=== PATIENT | female | born 1945 | race Caucasian/White ===

== ENCOUNTER 2022-02-04 21:07 | Inpatient (IN) ==
[2022-02-04] MEDS ORDERED: DILAUDID INJ ONE (22:34)
[2022-02-04] MEDS ORDERED: ZOFRAN INJ 4 MG VIAL IVP ONE (22:40)
[2022-02-04] MEDS ORDERED: DILAUDID INJ IVP ONE (22:40)
[2022-02-04] MEDS ORDERED: ZOFRAN INJ 4 MG VIAL ONE (22:42)
[2022-02-04] MEDS ORDERED: PHENERGAN INJ 25 MG IM PRN (23:16)
[2022-02-04] MEDS ORDERED: ZOFRAN INJ 4 MG VIAL IVP PRN (23:16)
[2022-02-04] MEDS ORDERED: ZANAFLEX PO PRN (23:28)
[2022-02-05] MEDS: BETAPACE AF PO SCH ×3 (00:35→20:24)
[2022-02-05] MEDS: ANCEF VIAL 1 GRAM IVP SCH ×2 (00:35→05:34)
[2022-02-05] MEDS ORDERED: D5 1/2 NS 1,000 ML 1,000 ML IV ONE (01:55)
[2022-02-05 02:27] LABS: BILIRUBIN,URINE NEGATIVE (NEGATIVE); BLOOD/HEMOGLOBIN,URINE 1+ (NEGATIVE); GLUCOSE, URINE NEGATIVE (NEGATIVE); KETONES,URINE NEGATIVE (NEGATIVE); LEUKOCYTE ESTERASE ,URINE 3+ (NEGATIVE); NITRITES,URINE NEGATIVE (NEGATIVE); PROTEIN,URINE 2+ (NEGATIVE); UROBILINOGEN,URINE NORMAL (NORMAL)
[2022-02-05] MEDS: DILAUDID INJ IVP PRN ×4 (02:46→16:50)
[2022-02-05 02:48] LABS: APPEARANCE,URINE CLEAR (CLEAR); COLOR,URINE YELLOW (YELLOW)
[2022-02-05 02:49] LABS: BACTERIA,URINE NEGATIVE /HPF (NEGATIVE); CALCIUM OXALATE CRYSTALS,UR MODERATE /HPF (NEGATIVE); SQUAMOUS EPITHELIAL CELL,UR RARE /HPF (NEGATIVE)
[2022-02-05 05:30] LABS: BASOPHILS % (AUTO) 0.4 % (0.2-1.0); HEMATOCRIT 21.8 % (36.0-47.0); HEMOGLOBIN 7.5 g/dL (12.0-16.0); LYMPHOCYTES # (AUTO) 1.2 X10^3/uL (1.3-2.9); LYMPHOCYTES % (AUTO) 10.4 % (21.0-51.0); MEAN CORPUSCULAR HEMOGLOBIN 30.7 pg (27.0-34.0); MEAN CORPUSCULAR HGB CONC 34.4 g/dL (33.0-35.0); MEAN CORPUSCULAR VOLUME 89.2 fL (80.0-100.0); MEAN PLATELET VOLUME 7.8 fL (7.4-11.0); MONOCYTES % (AUTO) 8.3 % (0.0-13.0); NEUTROPHILS # (AUTO) 9.8 x10^3/uL (2.2-4.8); NEUTROPHILS % (AUTO) 80.9 % (42.0-75.0); RED BLOOD COUNT 2.44 X10^6/uL (3.5-5.4); RED CELL DISTRIBUTION WIDTH 13.9 % (11.6-16.5)
[2022-02-05 06:01] LABS: ALBUMIN 2.5 g/dL (3.4-5.0); CALCIUM 6.9 mg/dL (8.5-10.1); CARBON DIOXIDE 22.3 mmol/L (21-32); COR CA(FOR HYPOALB) 8.1 mg/dL (8.5-10.1); CREATININE 1.64 mg/dL (0.55-1.02); TOTAL PROTEIN 4.7 g/dL (6.4-8.2)
--- NOTE | 2022-02-05 06:34 | RAD ---
HISTORY:Cardiovascular clearance for surgeryStudy: Single view chestComparison:NoneFindings:Upright portable view demonstrates mild cardiomegaly. No infiltrate, effusion or pneumothorax. There is a lap band place with port in left chest.IMPRESSION:1.No acute cardiopulmonary abnormality.Electronically signed by: VICK ADAN (Feb 05, 2022 06:32:36)
--- NOTE | 2022-02-05 08:58 | DR.PROGNOT ---
Hospital Progress Notes - Progress Note for Day of: Progress Note Date: 02/05/22 - Chief Complaint Chief Complaint: feeling better this am ..no active bleeding now . dressing was changed .. has stable hematomawith long 15 cm open wound . Hgb 7.5 . afebrile . - Past Medical Family Social History Past Med/Fam/Surg Hx: No changes since H&P Allergies: Allergies mupirocin [From Bactroban] Adverse Reaction (Verified 02/04/22 22:58) - Review Of Systems ROS: No change since H&P - Vital Signs Vital Signs: Temperature 97.5 F Pulse Rate [Radial] 52 Respiratory Rate 18 Blood Pressure [Right Arm] 93/54 O2 Sat by Pulse Oximetry 100 - Physical Exam Oriented: Normal Eyes: Normal Nose: Normal Throat: Normal Respiratory: Normal Cardiovascular: Normal : Normal GI:Auscultation: Normal GI:Palpation: Normal GI: Tenderness: Normal Skin: Ecchymosis. negative: Other (large deep hematoma within the soft tissue with open 15 cm wound .lateral Lt calf .) Speech Pattern: Clear, Appropriate - Laboratory and Diagnostics Result Diagrams: 02/05/22 05:20 02/05/22 05:20 Labs: Laboratory WBC 12.0 X10^3/uL (3.6-10.0) H 02/05/22 05:20 RBC 2.44 X10^6/uL (3.5-5.4) L 02/05/22 05:20 Hgb 7.5 g/dL (12.0-16.0) L 02/05/22 05:20 Hct 21.8 % (36.0-47.0) L 02/05/22 05:20 MCV 89.2 fL (80.0-100.0) 02/05/22 05:20 MCH 30.7 pg (27.0-34.0) 02/05/22 05:20 MCHC 34.4 g/dL (33.0-35.0) 02/05/22 05:20 RDW 13.9 % (11.6-16.5) 02/05/22 05:20 Plt Count 239 X10^3/uL (150.0-450.0) 02/05/22 05:20 MPV 7.8 fL (7.4-11.0) 02/05/22 05:20 Neut % (Auto) 80.9 % (42.0-75.0) H 02/05/22 05:20 Lymph % (Auto) 10.4 % (21.0-51.0) L 02/05/22 05:20 [place] % (Auto) 8.3 % (0.0-13.0) 02/05/22 05:20 Eos % (Auto) 0.0 % (0.9-2.9) L 02/05/22 05:20 Baso % (Auto) 0.4 % (0.2-1.0) 02/05/22 05:20 Neut # (Auto) 9.8 x10^3/uL (2.2-4.8) H 02/05/22 05:20 Lymph # (Auto) 1.2 X10^3/uL (1.3-2.9) L 02/05/22 05:20 [place] # (Auto) 1.0 x10^3/uL (0.3-0.8) H 02/05/22 05:20 Eos # (Auto) 0.0 x10^3/uL (0.0-0.2) 02/05/22 05:20 Baso # (Auto) 0.0 X10^3/uL (0.0-0.1) 02/05/22 05:20 Absolute Nucleated RBC 0.0 /100WBC 02/05/22 05:20 Sodium 141 mmol/L (136-145) 02/05/22 05:20 Corrected Sodium 143 mmol/L (136-145) 02/05/22 05:20 Potassium 4.4 mmol/L (3.5-5.1) 02/05/22 05:20 Chloride 110 mmol/L (98-107) H 02/05/22 05:20 Carbon Dioxide 22.3 mmol/L (21-32) 02/05/22 05:20 BUN 25 mg/dL (7-18) H 02/05/22 05:20 Creatinine 1.64 mg/dL (0.55-1.02) H 02/05/22 05:20 Est GFR (MDRD) Af Amer 39 (>60) L 02/05/22 05:20 Est GFR (MDRD) Non-Af 32 (>60) L 02/05/22 05:20 Glucose 167 mg/dL (65-99) H 02/05/22 05:20 Calcium 6.9 mg/dL (8.5-10.1) L 02/05/22 05:20 Corrected Calcium 8.1 mg/dL (8.5-10.1) L 02/05/22 05:20 Total Bilirubin 0.40 mg/dL (0.2-1.0) 02/05/22 05:20 AST 12 Units/L (15-37) L 02/05/22 05:20 ALT 8 Units/L (12-78) L 02/05/22 05:20 Alkaline Phosphatase 40 Units/L (46-116) L 02/05/22 05:20 Total Protein 4.7 g/dL (6.4-8.2) L 02/05/22 05:20 Albumin 2.5 g/dL (3.4-5.0) L 02/05/22 05:20 Globulin 2.2 g/dL (2.5-4.5) L 02/05/22 05:20 Albumin/Globulin Ratio 1.1 Ratio (1.1-2.1) 02/05/22 05:20 Specimen Type Catherized urine 02/05/22 02:00 Urine Color Yellow (YELLOW) 02/05/22 02:00 Urine Appearance Clear (CLEAR) 02/05/22 02:00 Urine pH 5.0 (5.0 - 8.0) 02/05/22 02:00 Ur Specific [place] 1.020 (1.000-1.030) 02/05/22 02:00 Urine Protein 2+ (NEGATIVE) 02/05/22 02:00 Urine Glucose (UA) Negative (NEGATIVE) 02/05/22 02:00 Urine Ketones Negative (NEGATIVE) 02/05/22 02:00 Urine Blood 1+ (NEGATIVE) 02/05/22 02:00 Urine Nitrite Negative (NEGATIVE) 02/05/22 02:00 Urine Bilirubin Negative (NEGATIVE) 02/05/22 02:00 Urine Urobilinogen Normal (NORMAL) 02/05/22 02:00 Ur Leukocyte Esterase 3+ (NEGATIVE) 02/05/22 02:00 Urine RBC 3-5 /HPF (0-3) A 02/05/22 02:00 Urine WBC 10-20 /HPF (0-5) A 02/05/22 02:00 Ur Squamous Epith Cells Rare /HPF (NEGATIVE) 02/05/22 02:00 Calcium Oxalate Crystal Moderate /HPF (NEGATIVE) 02/05/22 02:00 Urine Bacteria Negative /HPF (NEGATIVE) 02/05/22 02:00 Ur Culture Indicated? Yes/culture set up 02/05/22 02:00 SARS CoV-2 RNA Rapid KIM Negative (NEGATIVE) 02/04/22 22:15 Blood Type O POSITIVE 02/05/22 06:30 Antibody Screen Negative 02/05/22 06:30 Crossmatch See Detail 02/05/22 06:30 - Assessment and Plan 2: large deep hematoma Lt leg with open wound 15 cm. 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 A Fif , s/p cardiac ablation . arthritis . chronic lymphedema Lt leg s/p node dissection yearsago .. same local pressure , transfusion as needed , leg elevation .. no surgery now ..
[2022-02-05] MEDS ORDERED: NS 100 ML IV 100 ML ONE (11:44)
[2022-02-05] MEDS: BUSPAR PO SCH ×3 (14:37→20:25)
[2022-02-05] MEDS: NORCO 7.5/325 MG TAB PO PRN ×2 (14:53→20:27)
[2022-02-05] MEDS: K-DUR TAB 20 MEQ PO SCH (14:54)
[2022-02-05] MEDS: CYMBALTA PO SCH (14:54)
[2022-02-05] MEDS: ROCALTROL PO SCH (14:55)
[2022-02-05] MEDS: ZOSYN VIAL 3.375 GRAMS 3.375 G in NS 100 ML IV 100 ML IV SCH ×3 (14:55→21:17)
[2022-02-05] MEDS ORDERED: LR 1,000 ML IV 1,000 ML IV ONE ×2 (17:05→17:40)
[2022-02-05] MEDS: LR 1,000 ML IV 1,000 ML IV SCH ×3 (17:53→20:26)
[2022-02-05 18:00] LABS: HEMATOCRIT 25.8 % (36.0-47.0); HEMOGLOBIN 8.9 g/dL (12.0-16.0)
[2022-02-05] MEDS: BENADRYL CAP/TAB 25 MG PO PRN (20:24)
[2022-02-05] MEDS: XANAX PO PRN (20:25)
[2022-02-05] MEDS ORDERED: PROCARDIA XL 24-hr PO SCH (21:00)
[2022-02-06] MEDS ORDERED: NS 100 ML IV 100 ML ONE (00:57)
[2022-02-06] MEDS: LR 1,000 ML IV 1,000 ML IV SCH ×5 (02:24→18:03)
[2022-02-06] MEDS: ZOSYN VIAL 3.375 GRAMS 3.375 G in NS 100 ML IV 100 ML IV SCH ×3 (05:28→21:00)
[2022-02-06 07:37] LABS: BASOPHILS % (AUTO) 0.3 % (0.2-1.0); EOSINOPHILS % (AUTO) 0.4 % (0.9-2.9); HEMATOCRIT 25.6 % (36.0-47.0); HEMOGLOBIN 9.1 g/dL (12.0-16.0); LYMPHOCYTES % (AUTO) 10.2 % (21.0-51.0); MEAN CORPUSCULAR HEMOGLOBIN 31.3 pg (27.0-34.0); MEAN CORPUSCULAR HGB CONC 35.5 g/dL (33.0-35.0); MEAN CORPUSCULAR VOLUME 88.1 fL (80.0-100.0); MEAN PLATELET VOLUME 7.6 fL (7.4-11.0); MONOCYTES # (AUTO) 1.2 x10^3/uL (0.3-0.8); NEUTROPHILS # (AUTO) 7.5 x10^3/uL (2.2-4.8); NEUTROPHILS % (AUTO) 77.1 % (42.0-75.0); RED CELL DISTRIBUTION WIDTH 14.1 % (11.6-16.5); WHITE BLOOD COUNT 9.8 X10^3/uL (3.6-10.0)
[2022-02-06 07:43] LABS: ALANINE AMINOTRANSFERASE 9 Units/L (12-78); ALBUMIN 2.5 g/dL (3.4-5.0); ALKALINE PHOSPHATASE 44 Units/L (46-116); ASPARTATE AMINO TRANSFERASE 16 Units/L (15-37); BLOOD UREA NITROGEN 25 mg/dL (7-18); CALCIUM 6.7 mg/dL (8.5-10.1); CARBON DIOXIDE 24.2 mmol/L (21-32); CHLORIDE 105 mmol/L (98-107); COR CA(FOR HYPOALB) 7.9 mg/dL (8.5-10.1); CREATININE 1.77 mg/dL (0.55-1.02); SODIUM 136 mmol/L (136-145); TOTAL PROTEIN 4.9 g/dL (6.4-8.2); eGFR NON BLACK RACES 30 (>60)
[2022-02-06] MEDS: K-DUR TAB 20 MEQ PO SCH (08:13)
[2022-02-06] MEDS: CYMBALTA PO SCH (08:13)
[2022-02-06] MEDS: ROCALTROL PO SCH (08:13)
[2022-02-06] MEDS: BUSPAR PO SCH ×2 (08:14→20:50)
[2022-02-06] MEDS: BETAPACE AF PO SCH ×2 (08:14→20:49)
[2022-02-06] MEDS: NORCO 7.5/325 MG TAB PO PRN ×3 (08:15→20:50)
[2022-02-06] MEDS ORDERED: STERILE WATER IRRIGATION IR ONE (11:28)
[2022-02-06 12:18] LABS: BILIRUBIN,URINE NEGATIVE (NEGATIVE); BLOOD/HEMOGLOBIN,URINE 4+ (NEGATIVE); GLUCOSE, URINE NEGATIVE (NEGATIVE); KETONES,URINE NEGATIVE (NEGATIVE); LEUKOCYTE ESTERASE ,URINE NEGATIVE (NEGATIVE); NITRITES,URINE NEGATIVE (NEGATIVE); PROTEIN,URINE 1+ (NEGATIVE); UROBILINOGEN,URINE NORMAL (NORMAL)
[2022-02-06 12:34] LABS: APPEARANCE,URINE CLEAR (CLEAR); COLOR,URINE PALE YELLOW (YELLOW)
[2022-02-06 12:35] LABS: BACTERIA,URINE TRACE /HPF (NEGATIVE); SQUAMOUS EPITHELIAL CELL,UR NEGATIVE /HPF (NEGATIVE); YEAST,URINE RARE /HPF (NEGATIVE)
--- NOTE | 2022-02-06 12:44 | DR.PROGNOT ---
Hospital Progress Notes - Progress Note for Day of: Progress Note Date: 02/06/22 - Chief Complaint Chief Complaint: .no active bleeding now . had low urine out put ( osman cath was re inserted with good out put > 1000cc ). dressing was changed .. has stable hematomawith 15 cm open wound . Hgb 9.1 . afebrile . - Past Medical Family Social History Past Med/Fam/Surg Hx: No changes since H&P Allergies: Allergies mupirocin [From Bactroban] Adverse Reaction (Verified 02/04/22 22:58) - Review Of Systems ROS: No change since H&P - Vital Signs Vital Signs: Temperature 98.4 F Pulse Rate [Radial] 60 Respiratory Rate 20 Blood Pressure [Right Arm] 88/42 O2 Sat by Pulse Oximetry 100 - Physical Exam Oriented: Normal Eyes: Normal Nose: Normal Throat: Normal Respiratory: Normal Cardiovascular: Normal : Normal GI:Auscultation: Normal GI:Palpation: Normal GI: Tenderness: Normal Skin: Ecchymosis. negative: Other (large deep hematoma within the soft tissue with open 15 cm wound .lateral Lt calf .) Speech Pattern: Clear, Appropriate - Laboratory and Diagnostics Result Diagrams: 02/06/22 07:15 02/06/22 07:15 Labs: 02/05/22 02:00 Urine,Catheterized Urine Culture - Preliminary Laboratory WBC 9.8 X10^3/uL (3.6-10.0) 02/06/22 07:15 RBC 2.90 X10^6/uL (3.5-5.4) L 02/06/22 07:15 Hgb 9.1 g/dL (12.0-16.0) L 02/06/22 07:15 Hct 25.6 % (36.0-47.0) L 02/06/22 07:15 MCV 88.1 fL (80.0-100.0) 02/06/22 07:15 MCH 31.3 pg (27.0-34.0) 02/06/22 07:15 MCHC 35.5 g/dL (33.0-35.0) H 02/06/22 07:15 RDW 14.1 % (11.6-16.5) 02/06/22 07:15 Plt Count 169 X10^3/uL (150.0-450.0) 02/06/22 07:15 MPV 7.6 fL (7.4-11.0) 02/06/22 07:15 Neut % (Auto) 77.1 % (42.0-75.0) H 02/06/22 07:15 Lymph % (Auto) 10.2 % (21.0-51.0) L 02/06/22 07:15 [place] % (Auto) 12.0 % (0.0-13.0) 02/06/22 07:15 Eos % (Auto) 0.4 % (0.9-2.9) L 02/06/22 07:15 Baso % (Auto) 0.3 % (0.2-1.0) 02/06/22 07:15 Neut # (Auto) 7.5 x10^3/uL (2.2-4.8) H 02/06/22 07:15 Lymph # (Auto) 1.0 X10^3/uL (1.3-2.9) L 02/06/22 07:15 [place] # (Auto) 1.2 x10^3/uL (0.3-0.8) H 02/06/22 07:15 Eos # (Auto) 0.0 x10^3/uL (0.0-0.2) 02/06/22 07:15 Baso # (Auto) 0.0 X10^3/uL (0.0-0.1) 02/06/22 07:15 Absolute Nucleated RBC 0.0 /100WBC 02/06/22 07:15 Sodium 136 mmol/L (136-145) 02/06/22 07:15 Corrected Sodium TNP 02/06/22 07:15 Potassium 4.1 mmol/L (3.5-5.1) 02/06/22 07:15 Chloride 105 mmol/L (98-107) 02/06/22 07:15 Carbon Dioxide 24.2 mmol/L (21-32) 02/06/22 07:15 BUN 25 mg/dL (7-18) H 02/06/22 07:15 Creatinine 1.77 mg/dL (0.55-1.02) H 02/06/22 07:15 Est GFR (MDRD) Af Amer 36 (>60) L 02/06/22 07:15 Est GFR (MDRD) Non-Af 30 (>60) L 02/06/22 07:15 Glucose 100 mg/dL (65-99) H 02/06/22 07:15 Calcium 6.7 mg/dL (8.5-10.1) L 02/06/22 07:15 Corrected Calcium 7.9 mg/dL (8.5-10.1) L 02/06/22 07:15 Total Bilirubin 0.90 mg/dL (0.2-1.0) 02/06/22 07:15 AST 16 Units/L (15-37) 02/06/22 07:15 ALT 9 Units/L (12-78) L 02/06/22 07:15 Alkaline Phosphatase 44 Units/L (46-116) L 02/06/22 07:15 Total Protein 4.9 g/dL (6.4-8.2) L 02/06/22 07:15 Albumin 2.5 g/dL (3.4-5.0) L 02/06/22 07:15 Globulin 2.4 g/dL (2.5-4.5) L 02/06/22 07:15 Albumin/Globulin Ratio 1.0 Ratio (1.1-2.1) L 02/06/22 07:15 Specimen Type Catherized urine 02/06/22 11:50 Urine Color Pale yellow (YELLOW) 02/06/22 11:50 Urine Appearance Clear (CLEAR) 02/06/22 11:50 Urine pH 6.0 (5.0 - 8.0) 02/06/22 11:50 Ur Specific [place] 1.015 (1.000-1.030) 02/06/22 11:50 Urine Protein 1+ (NEGATIVE) 02/06/22 11:50 Urine Glucose (UA) Negative (NEGATIVE) 02/06/22 11:50 Urine Ketones Negative (NEGATIVE) 02/06/22 11:50 Urine Blood 4+ (NEGATIVE) 02/06/22 11:50 Urine Nitrite Negative (NEGATIVE) 02/06/22 11:50 Urine Bilirubin Negative (NEGATIVE) 02/06/22 11:50 Urine Urobilinogen Normal (NORMAL) 02/06/22 11:50 Ur Leukocyte Esterase Negative (NEGATIVE) 02/06/22 11:50 Urine RBC 3-5 /HPF (0-3) A 02/06/22 11:50 Urine WBC 0-2 /HPF (0-5) 02/06/22 11:50 Ur Squamous Epith Cells Negative /HPF (NEGATIVE) 02/06/22 11:50 Calcium Oxalate Crystal Moderate /HPF (NEGATIVE) 02/05/22 02:00 Urine Bacteria Trace /HPF (NEGATIVE) 02/06/22 11:50 Urine Yeast Rare /HPF (NEGATIVE) 02/06/22 11:50 Ur Culture Indicated? No/not indicated 02/06/22 11:50 SARS CoV-2 RNA Rapid KIM Negative (NEGATIVE) 02/04/22 22:15 Blood Type O POSITIVE 02/05/22 06:30 Antibody Screen Negative 02/05/22 06:30 Crossmatch See Detail 02/05/22 06:30 - Assessment and Plan 2: large deep hematoma Lt leg with open wound 15 cm. 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 A Fif , s/p cardiac ablation . arthritis . chronic lymphedema Lt leg s/p node dissection yearsago .. same local pressure , transfusion as needed , leg elevation .. to clean the wound in the OR in am if the Pt is staying in the hospital
[2022-02-06] MEDS: COZAAR PO SCH (14:29)
[2022-02-06] MEDS: MIRALAX POWDER (1 DOSE 17 G) PO SCH (20:48)
[2022-02-06] MEDS: XANAX PO PRN (20:48)
[2022-02-06] MEDS: COLACE CAP 100 MG PO SCH (20:49)
[2022-02-07] MEDS: LR 1,000 ML IV 1,000 ML IV SCH ×6 (00:01→22:24)
[2022-02-07] MEDS: ZOSYN VIAL 3.375 GRAMS 3.375 G in NS 100 ML IV 100 ML IV SCH ×3 (05:15→22:23)
[2022-02-07 06:08] LABS: BLOOD UREA NITROGEN 14 mg/dL (7-18); CALCIUM 7.3 mg/dL (8.5-10.1); CHLORIDE 108 mmol/L (98-107); CREATININE 1.07 mg/dL (0.55-1.02); SODIUM 140 mmol/L (136-145); eGFR NON BLACK RACES 53 (>60)
[2022-02-07 06:18] LABS: BASOPHILS % (AUTO) 0.2 % (0.2-1.0); EOSINOPHILS # (AUTO) 0.1 x10^3/uL (0.0-0.2); EOSINOPHILS % (AUTO) 1.2 % (0.9-2.9); LYMPHOCYTES # (AUTO) 0.9 X10^3/uL (1.3-2.9); LYMPHOCYTES % (AUTO) 13.8 % (21.0-51.0); MEAN CORPUSCULAR HEMOGLOBIN 32.1 pg (27.0-34.0); MEAN CORPUSCULAR HGB CONC 36.4 g/dL (33.0-35.0); MEAN CORPUSCULAR VOLUME 88.2 fL (80.0-100.0); MEAN PLATELET VOLUME 7.9 fL (7.4-11.0); MONOCYTES # (AUTO) 0.9 x10^3/uL (0.3-0.8); MONOCYTES % (AUTO) 13.9 % (0.0-13.0); NEUTROPHILS # (AUTO) 4.5 x10^3/uL (2.2-4.8); NEUTROPHILS % (AUTO) 70.9 % (42.0-75.0); RED BLOOD COUNT 2.49 X10^6/uL (3.5-5.4); RED CELL DISTRIBUTION WIDTH 13.9 % (11.6-16.5); WHITE BLOOD COUNT 6.4 X10^3/uL (3.6-10.0)
[2022-02-07] MEDS: CYMBALTA PO SCH (08:41)
[2022-02-07] MEDS: K-DUR TAB 20 MEQ PO SCH (08:41)
[2022-02-07] MEDS: ROCALTROL PO SCH (08:41)
[2022-02-07] MEDS: BUSPAR PO SCH ×2 (08:41→20:49)
[2022-02-07] MEDS: BETAPACE AF PO SCH ×2 (08:51→20:48)
[2022-02-07] MEDS: COZAAR PO SCH (08:52)
[2022-02-07] MEDS: PROCARDIA XL 24-hr PO SCH ×2 (09:25→20:49)
[2022-02-07 09:36] LABS: ALANINE AMINOTRANSFERASE 10 Units/L (12-78); ALBUMIN 2.4 g/dL (3.4-5.0); ALKALINE PHOSPHATASE 42 Units/L (46-116); ASPARTATE AMINO TRANSFERASE 15 Units/L (15-37); COR CA(FOR HYPOALB) 8.6 mg/dL (8.5-10.1); TOTAL PROTEIN 4.8 g/dL (6.4-8.2)
[2022-02-07] MEDS ORDERED: LR 1,000 ML IV 1,000 ML IV ONE (10:55)
[2022-02-07] MEDS ORDERED: FENTANYL VIAL INJ 100 mcg ONE (10:59)
[2022-02-07] MEDS ORDERED: VERSED ONE (10:59)
[2022-02-07] MEDS ORDERED: BETADINE SOLN ONE (11:01)
[2022-02-07] MEDS ORDERED: ANCEF VIAL 1 GRAM ONE (11:06)
[2022-02-07] MEDS ORDERED: POLYMYXIN B SULFATE ONE (11:34)
--- NOTE | 2022-02-07 12:13 | DR.UPDATE ---
H&P Update History and Physical Update: History and Physical reviewed and patient examined. Changes noted: NO Yes with the following:will place picc per Dr Ashraf order H&P Reviewed: Yes Patient was examined?: Yes Procedures (ALL) - Central Line Placement PCM.CLCO: written consent Time out performed: Yes Patient placed pm monitor/pulse ox: Yes prep: mask, gown, gloves, other Centrial line prep: povidone-iodine 1%, sterile drapes applied Local anesthsia used: lidocane 1% (1cc) Ultrasound used for placement: Yes (L basilic id'd via u/s and cannulation visualized) Central line lumen ininserted: double Post procedure: good blood return, all ports aspirated, flushed,capped, sterile dressing applied Post procedure xray: tip oc catheter in good position (appears to be SVC per cxr), no pneumothorax seen Patient tolerated procedure: Yes Complications: none
[2022-02-07] MEDS: DILAUDID INJ IVP PRN (12:32)
--- NOTE | 2022-02-07 13:35 | RAD ---
HISTORYPICC LINE PLACEMENTSTUDYCHEST, 1 [id number]/[id number] cardiomediastinal silhouette is prominent but stable. Left PICC placement with tip overlying the SVC. No acute airspace disease. No pneumothorax or effusion. The bony thorax appears intact. Similar lap band port overlying the left chest. Likely slipped lap band.IMPRESSIONExpected positioning of left PICC with tip overlying the SVC.Electronically signed by: ROBERT SHERMAN (Feb 07, 2022 13:33:09)
[2022-02-07] MEDS: NORCO 7.5/325 MG TAB PO PRN ×2 (14:45→20:49)
[2022-02-07] MEDS: MORPHINE SULFATE INJ 4 MG IVP PRN ×2 (17:39→22:24)
[2022-02-07] MEDS: XANAX PO PRN (20:48)
[2022-02-07] MEDS: COLACE CAP 100 MG PO SCH (20:48)
[2022-02-07] MEDS: MIRALAX POWDER (1 DOSE 17 G) PO SCH (20:50)
[2022-02-08] MEDS: ZOSYN VIAL 3.375 GRAMS 3.375 G in NS 100 ML IV 100 ML IV SCH ×3 (05:15→22:49)
[2022-02-08] MEDS: MORPHINE SULFATE INJ 4 MG IVP PRN ×3 (05:15→20:38)
[2022-02-08] MEDS: LR 1,000 ML IV 1,000 ML IV SCH ×3 (05:15→18:24)
[2022-02-08 06:05] LABS: ALANINE AMINOTRANSFERASE 7 Units/L (12-78); ALBUMIN 2.4 g/dL (3.4-5.0); ALKALINE PHOSPHATASE 48 Units/L (46-116); ASPARTATE AMINO TRANSFERASE 10 Units/L (15-37); BLOOD UREA NITROGEN 9 mg/dL (7-18); CALCIUM 7.4 mg/dL (8.5-10.1); CARBON DIOXIDE 27.4 mmol/L (21-32); CHLORIDE 106 mmol/L (98-107); COR CA(FOR HYPOALB) 8.7 mg/dL (8.5-10.1); COR NA(FOR HYPERGLY) 138 mmol/L (136-145); CREATININE 0.75 mg/dL (0.55-1.02); SODIUM 138 mmol/L (136-145); eGFR NON BLACK RACES > 60 (>60)
[2022-02-08 06:15] LABS: BASOPHILS % (AUTO) 0.3 % (0.2-1.0); EOSINOPHILS # (AUTO) 0.1 x10^3/uL (0.0-0.2); EOSINOPHILS % (AUTO) 1.2 % (0.9-2.9); HEMATOCRIT 22.6 % (36.0-47.0); HEMOGLOBIN 8.1 g/dL (12.0-16.0); LYMPHOCYTES # (AUTO) 0.9 X10^3/uL (1.3-2.9); LYMPHOCYTES % (AUTO) 9.9 % (21.0-51.0); MEAN CORPUSCULAR HEMOGLOBIN 31.6 pg (27.0-34.0); MEAN CORPUSCULAR HGB CONC 35.7 g/dL (33.0-35.0); MEAN CORPUSCULAR VOLUME 88.4 fL (80.0-100.0); MEAN PLATELET VOLUME 7.7 fL (7.4-11.0); MONOCYTES # (AUTO) 1.5 x10^3/uL (0.3-0.8); MONOCYTES % (AUTO) 16.5 % (0.0-13.0); NEUTROPHILS # (AUTO) 6.6 x10^3/uL (2.2-4.8); NEUTROPHILS % (AUTO) 72.1 % (42.0-75.0); RED BLOOD COUNT 2.55 X10^6/uL (3.5-5.4); RED CELL DISTRIBUTION WIDTH 14.1 % (11.6-16.5); WHITE BLOOD COUNT 9.2 X10^3/uL (3.6-10.0)
[2022-02-08] MEDS ORDERED: STERILE WATER IRRIGATION IR ONE (08:34)
[2022-02-08] MEDS ORDERED: TORADOL 30 MG VIAL ONE (08:40)
[2022-02-08] MEDS ORDERED: TORADOL 30 MG VIAL IVP ONE (08:41)
--- NOTE | 2022-02-08 09:26 | DR.PROGNOT ---
Hospital Progress Notes - Progress Note for Day of: Progress Note Date: 02/08/22 - Chief Complaint Chief Complaint: c/p pain at hematoma site .. no active bleeding .. stable VS . dressing was changed and all packing was removed .. Xeroform was applied .. - Past Medical Family Social History Past Med/Fam/Surg Hx: No changes since H&P Allergies: Allergies mupirocin [From Bactroban] Adverse Reaction (Verified 02/04/22 22:58) - Review Of Systems ROS: No change since H&P - Vital Signs Vital Signs: Temperature 98.3 F Pulse Rate [Radial] 67 Pulse Rate 59 Respiratory Rate 18 Blood Pressure [Right Arm] 138/63 Blood Pressure 162/84 O2 Sat by Pulse Oximetry 94 - Physical Exam Oriented: Normal Eyes: Normal Nose: Normal Throat: Normal Respiratory: Normal Cardiovascular: Normal : Normal GI:Auscultation: Normal GI:Palpation: Normal GI: Tenderness: Normal Skin: Ecchymosis. negative: Other (large deep hematoma within the soft tissue with open 15 cm wound .lateral Lt calf .) Speech Pattern: Clear, Appropriate - Laboratory and Diagnostics Result Diagrams: 02/08/22 05:22 02/08/22 05:22 Labs: 02/07/22 11:33 Leg - Left Wound Gram Stain - Final 02/05/22 02:00 Urine,Catheterized Urine Culture - Final Laboratory WBC 9.2 X10^3/uL (3.6-10.0) 02/08/22 05:22 RBC 2.55 X10^6/uL (3.5-5.4) L 02/08/22 05:22 Hgb 8.1 g/dL (12.0-16.0) L 02/08/22 05:22 Hct 22.6 % (36.0-47.0) L 02/08/22 05:22 MCV 88.4 fL (80.0-100.0) 02/08/22 05:22 MCH 31.6 pg (27.0-34.0) 02/08/22 05: MCHC 35.7 g/dL (33.0-35.0) H 02/08/22 05:22 RDW 14.1 % (11.6-16.5) 02/08/22 05:22 Plt Count 193 X10^3/uL (150.0-450.0) 02/08/22 05:22 MPV 7.7 fL (7.4-11.0) 02/08/22 05:22 Neut % (Auto) 72.1 % (42.0-75.0) 02/08/22 05:22 Lymph % (Auto) 9.9 % (21.0-51.0) L 02/08/22 05:22 [place] % (Auto) 16.5 % (0.0-13.0) H 02/08/22 05:22 Eos % (Auto) 1.2 % (0.9-2.9) 02/08/22 05:22 Baso % (Auto) 0.3 % (0.2-1.0) 02/08/22 05:22 Neut # (Auto) 6.6 x10^3/uL (2.2-4.8) H 02/08/22 05:22 Lymph # (Auto) 0.9 X10^3/uL (1.3-2.9) L 02/08/22 05:22 [place] # (Auto) 1.5 x10^3/uL (0.3-0.8) H 02/08/22 05:22 Eos # (Auto) 0.1 x10^3/uL (0.0-0.2) 02/08/22 05:22 Baso # (Auto) 0.0 X10^3/uL (0.0-0.1) 02/08/22 05:22 Absolute Nucleated RBC 0.0 /100WBC 02/08/22 05:22 Sodium 138 mmol/L (136-145) 02/08/22 05:22 Corrected Sodium 138 mmol/L (136-145) 02/08/22 05:22 Potassium 4.0 mmol/L (3.5-5.1) 02/08/22 05:22 Chloride 106 mmol/L (98-107) 02/08/22 05:22 Carbon Dioxide 27.4 mmol/L (21-32) 02/08/22 05:22 BUN 9 mg/dL (7-18) 02/08/22 05:22 Creatinine 0.75 mg/dL (0.55-1.02) 02/08/22 05:22 Est GFR (MDRD) Af Amer > 60 (>60) 02/08/22 05:22 Est GFR (MDRD) Non-Af > 60 (>60) 02/08/22 05:22 Glucose 118 mg/dL (65-99) H 02/08/22 05:22 Calcium 7.4 mg/dL (8.5-10.1) L 02/08/22 05:22 Corrected Calcium 8.7 mg/dL (8.5-10.1) 02/08/22 05:22 Total Bilirubin 0.80 mg/dL (0.2-1.0) 02/08/22 05:22 AST 10 Units/L (15-37) L 02/08/22 05:22 ALT 7 Units/L (12-78) L 02/08/22 05:22 Alkaline Phosphatase 48 Units/L (46-116) 02/08/22 05:22 Total Protein 5.0 g/dL (6.4-8.2) L 02/08/22 05:22 Albumin 2.4 g/dL (3.4-5.0) L 02/08/22 05:22 Globulin 2.6 g/dL (2.5-4.5) 02/08/22 05:22 Albumin/Globulin Ratio 0.9 Ratio (1.1-2.1) L 02/08/22 05:22 Specimen Type Catherized urine 02/06/22 11:50 Urine Color Pale yellow (YELLOW) 02/06/22 11:50 Urine Appearance Clear (CLEAR) 02/06/22 11:50 Urine pH 6.0 (5.0 - 8.0) 02/06/22 11:50 Ur Specific [place] 1.015 (1.000-1.030) 02/06/22 11:50 Urine Protein 1+ (NEGATIVE) 02/06/22 11:50 Urine Glucose (UA) Negative (NEGATIVE) 02/06/22 11:50 Urine Ketones Negative (NEGATIVE) 02/06/22 11:50 Urine Blood 4+ (NEGATIVE) 02/06/22 11:50 Urine Nitrite Negative (NEGATIVE) 02/06/22 11:50 Urine Bilirubin Negative (NEGATIVE) 02/06/22 11:50 Urine Urobilinogen Normal (NORMAL) 02/06/22 11:50 Ur Leukocyte Esterase Negative (NEGATIVE) 02/06/22 11:50 Urine RBC 3-5 /HPF (0-3) A 02/06/22 11:50 Urine WBC 0-2 /HPF (0-5) 02/06/22 11:50 Ur Squamous Epith Cells Negative /HPF (NEGATIVE) 02/06/22 11:50 Calcium Oxalate Crystal Moderate /HPF (NEGATIVE) 02/05/22 02:00 Urine Bacteria Trace /HPF (NEGATIVE) 02/06/22 11:50 Urine Yeast Rare /HPF (NEGATIVE) 02/06/22 11:50 Ur Culture Indicated? No/not indicated 02/06/22 11:50 SARS CoV-2 RNA Rapid KIM Negative (NEGATIVE) 02/04/22 22:15 Tissue Pathology To follow 02/07/22 11:50 Blood Type O POSITIVE 02/05/22 06:30 Antibody Screen Negative 02/05/22 06:30 Crossmatch See Detail 02/05/22 06:30 - Assessment and Plan 2: llarge hematoma Lt leg with undermined skin 20 x 14 cm. A Fif , s/p cardiac ablation . arthritis . chronic edema Lt leg s/p node dissection years ago .. same local pressure , transfusion as needed , leg elevation .. IV ABT
[2022-02-08] MEDS: K-DUR TAB 20 MEQ PO SCH (09:36)
[2022-02-08] MEDS: BETAPACE AF PO SCH ×2 (09:36→20:35)
[2022-02-08] MEDS: BUSPAR PO SCH ×2 (09:37→20:35)
[2022-02-08] MEDS: PROCARDIA XL 24-hr PO SCH ×2 (09:37→20:34)
[2022-02-08] MEDS: CYMBALTA PO SCH (09:37)
[2022-02-08] MEDS: COZAAR PO SCH (09:37)
[2022-02-08] MEDS: ROCALTROL PO SCH (09:37)
[2022-02-08] MEDS: NORCO 7.5/325 MG TAB PO PRN (18:28)
[2022-02-08] MEDS: COLACE CAP 100 MG PO SCH (20:34)
[2022-02-08] MEDS: XANAX PO PRN (20:35)
[2022-02-08] MEDS: MIRALAX POWDER (1 DOSE 17 G) PO SCH (20:36)
[2022-02-09] MEDS: LR 1,000 ML IV 1,000 ML IV SCH ×4 (00:56→18:15)
[2022-02-09] MEDS: MORPHINE SULFATE INJ 4 MG IVP PRN ×3 (03:49→14:16)
[2022-02-09] MEDS: ZOSYN VIAL 3.375 GRAMS 3.375 G in NS 100 ML IV 100 ML IV SCH ×3 (05:53→22:32)
[2022-02-09 06:14] LABS: ALANINE AMINOTRANSFERASE < 6 Units/L (12-78); ALBUMIN 2.1 g/dL (3.4-5.0); ALKALINE PHOSPHATASE 49 Units/L (46-116); ASPARTATE AMINO TRANSFERASE 9 Units/L (15-37); BLOOD UREA NITROGEN 8 mg/dL (7-18); CALCIUM 7.1 mg/dL (8.5-10.1); CARBON DIOXIDE 25.4 mmol/L (21-32); CHLORIDE 103 mmol/L (98-107); COR CA(FOR HYPOALB) 8.6 mg/dL (8.5-10.1); COR NA(FOR HYPERGLY) 134 mmol/L (136-145); CREATININE 0.72 mg/dL (0.55-1.02); SODIUM 134 mmol/L (136-145); TOTAL PROTEIN 4.7 g/dL (6.4-8.2); eGFR NON BLACK RACES > 60 (>60)
[2022-02-09 06:18] LABS: BASOPHILS % (AUTO) 0.3 % (0.2-1.0); EOSINOPHILS # (AUTO) 0.1 x10^3/uL (0.0-0.2); EOSINOPHILS % (AUTO) 0.8 % (0.9-2.9); LYMPHOCYTES # (AUTO) 0.7 X10^3/uL (1.3-2.9); LYMPHOCYTES % (AUTO) 8.3 % (21.0-51.0); MEAN CORPUSCULAR HEMOGLOBIN 32.4 pg (27.0-34.0); MEAN CORPUSCULAR HGB CONC 36.4 g/dL (33.0-35.0); MEAN CORPUSCULAR VOLUME 89.1 fL (80.0-100.0); MEAN PLATELET VOLUME 7.6 fL (7.4-11.0); MONOCYTES # (AUTO) 1.4 x10^3/uL (0.3-0.8); MONOCYTES % (AUTO) 16.1 % (0.0-13.0); NEUTROPHILS # (AUTO) 6.7 x10^3/uL (2.2-4.8); NEUTROPHILS % (AUTO) 74.5 % (42.0-75.0); RED BLOOD COUNT 2.14 X10^6/uL (3.5-5.4); RED CELL DISTRIBUTION WIDTH 14.2 % (11.6-16.5)
[2022-02-09 06:34] LABS: HEMATOCRIT 19.1 % (36.0-47.0); HEMOGLOBIN 6.9 g/dL (12.0-16.0)
[2022-02-09] MEDS: BETAPACE AF PO SCH ×2 (08:53→20:25)
[2022-02-09] MEDS: K-DUR TAB 20 MEQ PO SCH (08:53)
[2022-02-09] MEDS: CYMBALTA PO SCH (08:54)
[2022-02-09] MEDS: ROCALTROL PO SCH (08:54)
[2022-02-09] MEDS: PROCARDIA XL 24-hr PO SCH ×2 (08:54→20:25)
[2022-02-09] MEDS: COZAAR PO SCH (08:54)
[2022-02-09] MEDS: BUSPAR PO SCH ×2 (08:54→20:26)
--- NOTE | 2022-02-09 10:50 | DR.PROGNOT ---
Hospital Progress Notes - Progress Note for Day of: Progress Note Date: 02/09/22 - Chief Complaint Chief Complaint: feeling better today with less pain. HGB drpped to 6.9. no active bleeding .. stable VS . Xeroform was applied .. - Past Medical Family Social History Past Med/Fam/Surg Hx: No changes since H&P Allergies: Allergies mupirocin [From Bactroban] Adverse Reaction (Verified 02/04/22 22:58) - Review Of Systems ROS: No change since H&P - Vital Signs Vital Signs: Temperature 98.0 F Pulse Rate [Radial] 76 Pulse Rate 59 Respiratory Rate 18 Blood Pressure [Right Arm] 124/63 Blood Pressure 162/84 O2 Sat by Pulse Oximetry 90 - Physical Exam Oriented: Normal Eyes: Normal Nose: Normal Throat: Normal Respiratory: Normal Cardiovascular: Normal : Normal GI:Auscultation: Normal GI:Palpation: Normal GI: Tenderness: Normal Skin: Ecchymosis. negative: Other (large deep hematoma within the soft tissue with open 15 cm wound .lateral Lt calf .) Speech Pattern: Clear, Appropriate - Laboratory and Diagnostics Result Diagrams: 02/09/22 05:20 02/09/22 05:20 Labs: 02/07/22 11:33 Leg - Left Wound Gram Stain - Final 02/07/22 11:33 Leg - Left Wound Culture - Preliminary 02/05/22 02:00 Urine,Catheterized Urine Culture - Final Laboratory WBC 9.0 X10^3/uL (3.6-10.0) 02/09/22 05:20 RBC 2.14 X10^6/uL (3.5-5.4) L 02/09/22 05:20 Hgb 6.9 g/dL (12.0-16.0) L* 02/09/22 05:20 Hct 19.1 % (36.0-47.0) L* 02/09/22 05:20 MCV 89.1 fL (80.0-100.0) 02/09/22 05:20 MCH 32.4 pg (27.0-34.0) 02/09/22 05:20 MCHC 36.4 g/dL (33.0-35.0) H 02/09/22 05:20 RDW 14.2 % (11.6-16.5) 02/09/22 05:20 Plt Count 196 X10^3/uL (150.0-450.0) 02/09/22 05:20 MPV 7.6 fL (7.4-11.0) 02/09/22 05:20 Neut % (Auto) 74.5 % (42.0-75.0) 02/09/22 05:20 Lymph % (Auto) 8.3 % (21.0-51.0) L 02/09/22 05:20 [place] % (Auto) 16.1 % (0.0-13.0) H 02/09/22 05:20 Eos % (Auto) 0.8 % (0.9-2.9) L 02/09/22 05:20 Baso % (Auto) 0.3 % (0.2-1.0) 02/09/22 05:20 Neut # (Auto) 6.7 x10^3/uL (2.2-4.8) H 02/09/22 05:20 Lymph # (Auto) 0.7 X10^3/uL (1.3-2.9) L 02/09/22 05:20 [place] # (Auto) 1.4 x10^3/uL (0.3-0.8) H 02/09/22 05:20 Eos # (Auto) 0.1 x10^3/uL (0.0-0.2) 02/09/22 05:20 Baso # (Auto) 0.0 X10^3/uL (0.0-0.1) 02/09/22 05:20 Absolute Nucleated RBC 0.0 /100WBC 02/09/22 05:20 Sodium 134 mmol/L (136-145) L 02/09/22 05:20 Corrected Sodium 134 mmol/L (136-145) L 02/09/22 05:20 Potassium 3.9 mmol/L (3.5-5.1) 02/09/22 05:20 Chloride 103 mmol/L (98-107) 02/09/22 05:20 Carbon Dioxide 25.4 mmol/L (21-32) 02/09/22 05:20 BUN 8 mg/dL (7-18) 02/09/22 05:20 Creatinine 0.72 mg/dL (0.55-1.02) 02/09/22 05:20 Est GFR (MDRD) Af Amer > 60 (>60) 02/09/22 05:20 Est GFR (MDRD) Non-Af > 60 (>60) 02/09/22 05:20 Glucose 113 mg/dL (65-99) H 02/09/22 05:20 Calcium 7.1 mg/dL (8.5-10.1) L 02/09/22 05:20 Corrected Calcium 8.6 mg/dL (8.5-10.1) 02/09/22 05:20 Total Bilirubin 1.30 mg/dL (0.2-1.0) H 02/09/22 05:20 AST 9 Units/L (15-37) L 02/09/22 05:20 ALT < 6 Units/L (12-78) L 02/09/22 05:20 Alkaline Phosphatase 49 Units/L (46-116) 02/09/22 05:20 Total Protein 4.7 g/dL (6.4-8.2) L 02/09/22 05:20 Albumin 2.1 g/dL (3.4-5.0) L 02/09/22 05:20 Globulin 2.6 g/dL (2.5-4.5) 02/09/22 05:20 Albumin/Globulin Ratio 0.8 Ratio (1.1-2.1) L 02/09/22 05:20 Specimen Type Catherized urine 02/06/22 11:50 Urine Color Pale yellow (YELLOW) 02/06/22 11:50 Urine Appearance Clear (CLEAR) 02/06/22 11:50 Urine pH 6.0 (5.0 - 8.0) 02/06/22 11:50 Ur Specific [place] 1.015 (1.000-1.030) 02/06/22 11:50 Urine Protein 1+ (NEGATIVE) 02/06/22 11:50 Urine Glucose (UA) Negative (NEGATIVE) 02/06/22 11:50 Urine Ketones Negative (NEGATIVE) 02/06/22 11:50 Urine Blood 4+ (NEGATIVE) 02/06/22 11:50 Urine Nitrite Negative (NEGATIVE) 02/06/22 11:50 Urine Bilirubin Negative (NEGATIVE) 02/06/22 11:50 Urine Urobilinogen Normal (NORMAL) 02/06/22 11:50 Ur Leukocyte Esterase Negative (NEGATIVE) 02/06/22 11:50 Urine RBC 3-5 /HPF (0-3) A 02/06/22 11:50 Urine WBC 0-2 /HPF (0-5) 02/06/22 11:50 Ur Squamous Epith Cells Negative /HPF (NEGATIVE) 02/06/22 11:50 Calcium Oxalate Crystal Moderate /HPF (NEGATIVE) 02/05/22 02:00 Urine Bacteria Trace /HPF (NEGATIVE) 02/06/22 11:50 Urine Yeast Rare /HPF (NEGATIVE) 02/06/22 11:50 Ur Culture Indicated? No/not indicated 02/06/22 11:50 SARS CoV-2 RNA Rapid KIM Negative (NEGATIVE) 02/04/22 22:15 Tissue Pathology To follow 02/07/22 11:50 Blood Type O POSITIVE 02/05/22 06:30 Antibody Screen Negative 02/05/22 06:30 Crossmatch See Detail 02/05/22 06:30 - Assessment and Plan 2: large hematoma Lt leg with undermined skin 20 x 14 cm. A Fib , s/p cardiac ablation . arthritis . anemia 2nd blood loss .. no active bleeding .. chroni c edema Lt leg s/p node dissection years ago .. same local pressure , transfusion as needed , leg elevation .. IV ABT
[2022-02-09] MEDS ORDERED: NS 100 ML IV 100 ML ONE ×2 (12:10→17:43)
[2022-02-09] MEDS: NORCO 7.5/325 MG TAB PO PRN (19:40)
[2022-02-09] MEDS: COLACE CAP 100 MG PO SCH (20:35)
[2022-02-09] MEDS: MIRALAX POWDER (1 DOSE 17 G) PO SCH (20:36)
[2022-02-09] MEDS: XANAX PO PRN (22:09)
[2022-02-09 22:26] LABS: HEMATOCRIT 29.4 % (36.0-47.0); HEMOGLOBIN 10.3 g/dL (12.0-16.0)
[2022-02-10] MEDS: LR 1,000 ML IV 1,000 ML IV SCH ×2 (00:47→03:43)
[2022-02-10] MEDS: MORPHINE SULFATE INJ 4 MG IVP PRN ×2 (03:40→18:02)
[2022-02-10] MEDS: HYDROCHLOROTHIAZIDE 25 MG TAB PO PRN (03:41)
[2022-02-10] MEDS: ZOSYN VIAL 3.375 GRAMS 3.375 G in NS 100 ML IV 100 ML IV SCH ×2 (05:33→14:40)
[2022-02-10 06:26] LABS: BASOPHILS % (AUTO) 0.3 % (0.2-1.0); EOSINOPHILS # (AUTO) 0.1 x10^3/uL (0.0-0.2); EOSINOPHILS % (AUTO) 0.4 % (0.9-2.9); HEMATOCRIT 27.3 % (36.0-47.0); HEMOGLOBIN 9.7 g/dL (12.0-16.0); LYMPHOCYTES # (AUTO) 0.6 X10^3/uL (1.3-2.9); MEAN CORPUSCULAR HEMOGLOBIN 31.1 pg (27.0-34.0); MEAN CORPUSCULAR HGB CONC 35.6 g/dL (33.0-35.0); MEAN CORPUSCULAR VOLUME 87.4 fL (80.0-100.0); MEAN PLATELET VOLUME 7.3 fL (7.4-11.0); MONOCYTES # (AUTO) 2.1 x10^3/uL (0.3-0.8); MONOCYTES % (AUTO) 16.8 % (0.0-13.0); NEUTROPHILS # (AUTO) 9.5 x10^3/uL (2.2-4.8); NEUTROPHILS % (AUTO) 77.5 % (42.0-75.0); RED BLOOD COUNT 3.13 X10^6/uL (3.5-5.4); RED CELL DISTRIBUTION WIDTH 14.1 % (11.6-16.5); WHITE BLOOD COUNT 12.3 X10^3/uL (3.6-10.0)
[2022-02-10 06:31] LABS: ALANINE AMINOTRANSFERASE 7 Units/L (12-78); ALBUMIN 2.3 g/dL (3.4-5.0); ALKALINE PHOSPHATASE 65 Units/L (46-116); ASPARTATE AMINO TRANSFERASE 9 Units/L (15-37); BLOOD UREA NITROGEN 9 mg/dL (7-18); CALCIUM 7.3 mg/dL (8.5-10.1); CARBON DIOXIDE 23.2 mmol/L (21-32); CHLORIDE 101 mmol/L (98-107); COR CA(FOR HYPOALB) 8.7 mg/dL (8.5-10.1); COR NA(FOR HYPERGLY) 135 mmol/L (136-145); CREATININE 0.73 mg/dL (0.55-1.02); SODIUM 135 mmol/L (136-145); TOTAL PROTEIN 5.5 g/dL (6.4-8.2); eGFR NON BLACK RACES > 60 (>60)
[2022-02-10] MEDS ORDERED: TYLENOL 325 MG TAB PO PRN (08:03)
[2022-02-10] MEDS ORDERED: VANCOMYCIN IV *PREMIX 1 G/200 ML BAG 1 G/200 ML PIGGYBACK IV ONE (08:05)
[2022-02-10] MEDS ORDERED: PHARMACY CONSULT - VANCOMYCIN XX SCH (09:00)
[2022-02-10] MEDS: VANCOMYCIN IV *PREMIX 1.25 G/250 ML BAG 1.25 G/250 ML PIGGYBACK IV SCH ×2 (09:29→20:34)
[2022-02-10] MEDS: COZAAR PO SCH (09:29)
[2022-02-10] MEDS: PROCARDIA XL 24-hr PO SCH ×2 (09:29→20:25)
[2022-02-10] MEDS: BETAPACE AF PO SCH ×2 (09:29→20:25)
--- NOTE | 2022-02-10 09:37 | VAS ---
HISTORYPain and swelling to bilat armsSTUDYUPPER EXT VENOUS, BILATCOMPARISON[None.]TECHNIQUEDoppler ultrasound of the [bilateral upper] extremity deep venous system.FINDINGSNegative for DVT in the [bilateral upper] extremity deep venous system.IMPRESSION[Negative for DVT in the visualized veins.]Electronically signed by: Rojelio Orosco (Feb 10, 2022 09:35:58)
--- NOTE | 2022-02-10 10:25 | RAD ---
HISTORYChest painSTUDYChest AP [id number]/01/2022FINDINGSTher e is a left-sided PICC line in good position. Heart is enlarged. No congestive heart failure is noted. No definite acute alveolar infiltrates or pleural effusions are identified. Bony thorax is unremarkable.IMPRESSIONMild cardiomegaly without congestive heart failureNo definite acute infiltratesElectronically signed by: ROBERT SHERMAN (Feb 10, 2022 10:24:17)
[2022-02-10] MEDS: BUSPAR PO SCH ×2 (12:22→20:25)
[2022-02-10] MEDS: CYMBALTA PO SCH (15:24)
[2022-02-10] MEDS: K-DUR TAB 20 MEQ PO SCH (15:24)
[2022-02-10] MEDS: ROCALTROL PO SCH (15:25)
[2022-02-10] MEDS ORDERED: DIPRIVAN VIAL 20 ML ONE (15:31)
[2022-02-10] MEDS ORDERED: VERSED ONE (15:31)
[2022-02-10] MEDS ORDERED: KETAMINE HCL ONE (16:00)
[2022-02-10] MEDS ORDERED: HYDROGEN PEROXIDE 3% ONE (16:03)
[2022-02-10] MEDS ORDERED: NS IRRIGATION* 500 ML IR ONE (16:04)
--- NOTE | 2022-02-10 16:52 | DR.PROGNOT ---
Hospital Progress Notes - Progress Note for Day of: Progress Note Date: 02/10/22 - Chief Complaint Chief Complaint: was having low grade fever .. mild leukocytosis.. dressing was changed . some of the skin is sloughing off .. applied Xeroform and covered the wound . - Past Medical Family Social History Past Med/Fam/Surg Hx: No changes since H&P Allergies: Allergies mupirocin [From Bactroban] Adverse Reaction (Verified 02/04/22 22:58) - Review Of Systems ROS: No change since H&P - Vital Signs Vital Signs: Temperature 99.6 F Pulse Rate [Radial] 77 Pulse Rate 59 Respiratory Rate 20 Blood Pressure [Right Arm] 136/67 Blood Pressure 162/84 O2 Sat by Pulse Oximetry 95 - Physical Exam Oriented: Normal Eyes: Normal Nose: Normal Throat: Normal Respiratory: Normal Cardiovascular: Normal : Normal GI:Auscultation: Normal GI:Palpation: Normal GI: Tenderness: Normal Skin: Ecchymosis (large open wound 20 x 15 cm with partially intact skin .. no active infection .). negative: Other (large deep hematoma within the soft tissue with open 15 cm wound .lateral Lt calf .) Speech Pattern: Clear, Appropriate - Laboratory and Diagnostics Result Diagrams: 02/10/22 05:33 02/10/22 05:33 Labs: 02/07/22 11:33 Leg - Left Wound Gram Stain - Final 02/07/22 11:33 Leg - Left Wound Culture - Final Staphylococcus Hominis 02/05/22 02:00 Urine,Catheterized Urine Culture - Final Laboratory WBC 12.3 X10^3/uL (3.6-10.0) H 02/10/22 05:33 RBC 3.13 X10^6/uL (3.5-5.4) L 02/10/22 05:33 Hgb 9.7 g/dL (12.0-16.0) L 02/10/22 05:33 Hct 27.3 % (36.0-47.0) L 02/10/22 05:33 MCV 87.4 fL (80.0-100.0) 02/10/22 05:33 MCH 31.1 pg (27.0-34.0) 02/10/22 05:33 MCHC 35.6 g/dL (33.0-35.0) H 02/10/22 05:33 RDW 14.1 % (11.6-16.5) 02/10/22 05:33 Plt Count 245 X10^3/uL (150.0-450.0) 02/10/22 05:33 MPV 7.3 fL (7.4-11.0) L 02/10/22 05:33 Neut % (Auto) 77.5 % (42.0-75.0) H 02/10/22 05:33 Lymph % (Auto) 5.0 % (21.0-51.0) L 02/10/22 05:33 [place] % (Auto) 16.8 % (0.0-13.0) H 02/10/22 05:33 Eos % (Auto) 0.4 % (0.9-2.9) L 02/10/22 05:33 Baso % (Auto) 0.3 % (0.2-1.0) 02/10/22 05:33 Neut # (Auto) 9.5 x10^3/uL (2.2-4.8) H 02/10/22 05:33 Lymph # (Auto) 0.6 X10^3/uL (1.3-2.9) L 02/10/22 05:33 [place] # (Auto) 2.1 x10^3/uL (0.3-0.8) H 02/10/22 05:33 Eos # (Auto) 0.1 x10^3/uL (0.0-0.2) 02/10/22 05:33 Baso # (Auto) 0.0 X10^3/uL (0.0-0.1) 02/10/22 05:33 Absolute Nucleated RBC 0.0 /100WBC 02/10/22 05:33 Sodium 135 mmol/L (136-145) L 02/10/22 05:33 Corrected Sodium 135 mmol/L (136-145) L 02/10/22 05:33 Potassium 3.9 mmol/L (3.5-5.1) 02/10/22 05:33 Chloride 101 mmol/L (98-107) 02/10/22 05:33 Carbon Dioxide 23.2 mmol/L (21-32) 02/10/22 05:33 BUN 9 mg/dL (7-18) 02/10/22 05:33 Creatinine 0.73 mg/dL (0.55-1.02) 02/10/22 05:33 Est GFR (MDRD) Af Amer > 60 (>60) 02/10/22 05:33 Est GFR (MDRD) Non-Af > 60 (>60) 02/10/22 05:33 Glucose 116 mg/dL (65-99) H 02/10/22 05:33 Calcium 7.3 mg/dL (8.5-10.1) L 02/10/22 05:33 Corrected Calcium 8.7 mg/dL (8.5-10.1) 02/10/22 05:33 Total Bilirubin 2.40 mg/dL (0.2-1.0) H 02/10/22 05:33 AST 9 Units/L (15-37) L 02/10/22 05:33 ALT 7 Units/L (12-78) L 02/10/22 05:33 Alkaline Phosphatase 65 Units/L (46-116) 02/10/22 05:33 Creatine Kinase 53 Units/L (26-192) 02/10/22 09:08 Troponin I High Sens 8.4 ng/L (4.0-60.0) 02/10/22 09:08 Total Protein 5.5 g/dL (6.4-8.2) L 02/10/22 05:33 Albumin 2.3 g/dL (3.4-5.0) L 02/10/22 05:33 Globulin 3.2 g/dL (2.5-4.5) 02/10/22 05:33 Albumin/Globulin Ratio 0.7 Ratio (1.1-2.1) L 02/10/22 05:33 Specimen Type Catherized urine 02/06/22 11:50 Urine Color Pale yellow (YELLOW) 02/06/22 11:50 Urine Appearance Clear (CLEAR) 02/06/22 11:50 Urine pH 6.0 (5.0 - 8.0) 02/06/22 11:50 Ur Specific [place] 1.015 (1.000-1.030) 02/06/22 11:50 Urine Protein 1+ (NEGATIVE) 02/06/22 11:50 Urine Glucose (UA) Negative (NEGATIVE) 02/06/22 11:50 Urine Ketones Negative (NEGATIVE) 02/06/22 11:50 Urine Blood 4+ (NEGATIVE) 02/06/22 11:50 Urine Nitrite Negative (NEGATIVE) 02/06/22 11:50 Urine Bilirubin Negative (NEGATIVE) 02/06/22 11:50 Urine Urobilinogen Normal (NORMAL) 02/06/22 11:50 Ur Leukocyte Esterase Negative (NEGATIVE) 02/06/22 11:50 Urine RBC 3-5 /HPF (0-3) A 02/06/22 11:50 Urine WBC 0-2 /HPF (0-5) 02/06/22 11:50 Ur Squamous Epith Cells Negative /HPF (NEGATIVE) 02/06/22 11:50 Calcium Oxalate Crystal Moderate /HPF (NEGATIVE) 02/05/22 02:00 Urine Bacteria Trace /HPF (NEGATIVE) 02/06/22 11:50 Urine Yeast Rare /HPF (NEGATIVE) 02/06/22 11:50 Ur Culture Indicated? No/not indicated 02/06/22 11:50 SARS CoV-2 RNA Rapid KIM Negative (NEGATIVE) 02/04/22 22:15 Tissue Pathology To follow 02/07/22 11:50 Blood Type O POSITIVE 02/09/22 09:27 Antibody Screen Negative 02/09/22 09:27 Crossmatch See Detail 02/09/22 09:27 - Assessment and Plan 2: large open wound Lt leg with undermined skin 20 x 14 cm and skin loss. A Fib , s/p cardiac ablation . arthritis . anemia 2nd blood loss .. no active bleeding .. chronic edema Lt leg s/p node dissection years ago .. same local care , transfusion as needed , leg elevation .. IV ABT .. will need skin graft later on ..
[2022-02-10] MEDS: COLACE CAP 100 MG PO SCH (20:25)
[2022-02-10] MEDS: XANAX PO PRN (20:29)
[2022-02-10] MEDS: MIRALAX POWDER (1 DOSE 17 G) PO SCH (20:34)
[2022-02-11 06:31] LABS: BASOPHILS % (AUTO) 0.3 % (0.2-1.0); EOSINOPHILS # (AUTO) 0.1 x10^3/uL (0.0-0.2); EOSINOPHILS % (AUTO) 0.9 % (0.9-2.9); HEMATOCRIT 27.2 % (36.0-47.0); HEMOGLOBIN 9.7 g/dL (12.0-16.0); LYMPHOCYTES # (AUTO) 0.6 X10^3/uL (1.3-2.9); LYMPHOCYTES % (AUTO) 5.7 % (21.0-51.0); MEAN CORPUSCULAR HEMOGLOBIN 31.1 pg (27.0-34.0); MEAN CORPUSCULAR HGB CONC 35.6 g/dL (33.0-35.0); MEAN CORPUSCULAR VOLUME 87.4 fL (80.0-100.0); MEAN PLATELET VOLUME 7.2 fL (7.4-11.0); MONOCYTES # (AUTO) 1.7 x10^3/uL (0.3-0.8); MONOCYTES % (AUTO) 15.9 % (0.0-13.0); NEUTROPHILS % (AUTO) 77.2 % (42.0-75.0); RED BLOOD COUNT 3.11 X10^6/uL (3.5-5.4); RED CELL DISTRIBUTION WIDTH 14.3 % (11.6-16.5); WHITE BLOOD COUNT 10.4 X10^3/uL (3.6-10.0)
[2022-02-11 06:33] LABS: ALANINE AMINOTRANSFERASE < 6 Units/L (12-78); ALBUMIN 2.2 g/dL (3.4-5.0); ALKALINE PHOSPHATASE 69 Units/L (46-116); ASPARTATE AMINO TRANSFERASE 8 Units/L (15-37); BLOOD UREA NITROGEN 10 mg/dL (7-18); CALCIUM 7.4 mg/dL (8.5-10.1); CARBON DIOXIDE 21.5 mmol/L (21-32); CHLORIDE 101 mmol/L (98-107); COR CA(FOR HYPOALB) 8.8 mg/dL (8.5-10.1); SODIUM 135 mmol/L (136-145); TOTAL PROTEIN 5.5 g/dL (6.4-8.2); eGFR NON BLACK RACES > 60 (>60)
[2022-02-11] MEDS: VANCOMYCIN IV *PREMIX 1.25 G/250 ML BAG 1.25 G/250 ML PIGGYBACK IV SCH ×2 (09:12→21:32)
[2022-02-11] MEDS: COZAAR PO SCH (09:14)
[2022-02-11] MEDS: BETAPACE AF PO SCH ×2 (09:14→21:31)
[2022-02-11] MEDS: BUSPAR PO SCH ×2 (09:14→21:31)
[2022-02-11] MEDS: PROCARDIA XL 24-hr PO SCH ×2 (09:15→21:31)
[2022-02-11] MEDS: CYMBALTA PO SCH (09:15)
[2022-02-11] MEDS: K-DUR TAB 20 MEQ PO SCH (09:15)
[2022-02-11] MEDS: ROCALTROL PO SCH (09:16)
--- NOTE | 2022-02-11 10:30 | DR.PROGNOT ---
Hospital Progress Notes - Progress Note for Day of: Progress Note Date: 02/11/22 - Chief Complaint Chief Complaint: feeling better today , more comfortable .. WBC 10.5..Hgb 9.7 .. Bilir 1.5. temp 98.4 - Past Medical Family Social History Past Med/Fam/Surg Hx: No changes since H&P Allergies: Allergies mupirocin [From Bactroban] Adverse Reaction (Verified 02/04/22 22:58) - Review Of Systems ROS: No change since H&P - Vital Signs Vital Signs: Temperature 98.8 F Pulse Rate [Radial] 69 Pulse Rate 59 Respiratory Rate 18 Blood Pressure [Right Arm] 122/56 Blood Pressure 162/84 O2 Sat by Pulse Oximetry 94 - Physical Exam Oriented: Normal Eyes: Normal Nose: Normal Throat: Normal Respiratory: Normal Cardiovascular: Normal : Normal GI:Auscultation: Normal GI:Palpation: Normal GI: Tenderness: Normal Skin: Ecchymosis (Lt leg wound is dressed .. no bleeding .). negative: Other (large deep hematoma within the soft tissue with open 15 cm wound .lateral Lt calf .) Speech Pattern: Clear, Appropriate - Laboratory and Diagnostics Result Diagrams: 02/11/22 06:04 02/11/22 06:04 Labs: 02/10/22 09:08 Blood Blood Culture - Preliminary 02/07/22 11:33 Leg - Left Wound Gram Stain - Final 02/07/22 11:33 Leg - Left Wound Culture - Final Staphylococcus Hominis 02/05/22 02:00 Urine,Catheterized Urine Culture - Final Laboratory WBC 10.4 X10^3/uL (3.6-10.0) H 02/11/22 06:04 RBC 3.11 X10^6/uL (3.5-5.4) L 02/11/22 06:04 Hgb 9.7 g/dL (12.0-16.0) L 02/11/22 06:04 Hct 27.2 % (36.0-47.0) L 02/11/22 06:04 MCV 87.4 fL (80.0-100.0) 02/11/22 06:04 MCH 31.1 pg (27.0-34.0) 02/11/22 06:04 MCHC 35.6 g/dL (33.0-35.0) H 02/11/22 06:04 RDW 14.3 % (11.6-16.5) 02/11/22 06:04 Plt Count 292 X10^3/uL (150.0-450.0) 02/11/22 06:04 MPV 7.2 fL (7.4-11.0) L 02/11/22 06:04 Neut % (Auto) 77.2 % (42.0-75.0) H 02/11/22 06:04 Lymph % (Auto) 5.7 % (21.0-51.0) L 02/11/22 06:04 [place] % (Auto) 15.9 % (0.0-13.0) H 02/11/22 06:04 Eos % (Auto) 0.9 % (0.9-2.9) 02/11/22 06:04 Baso % (Auto) 0.3 % (0.2-1.0) 02/11/22 06:04 Neut # (Auto) 8.0 x10^3/uL (2.2-4.8) H 02/11/22 06:04 Lymph # (Auto) 0.6 X10^3/uL (1.3-2.9) L 02/11/22 06:04 [place] # (Auto) 1.7 x10^3/uL (0.3-0.8) H 02/11/22 06:04 Eos # (Auto) 0.1 x10^3/uL (0.0-0.2) 02/11/22 06:04 Baso # (Auto) 0.0 X10^3/uL (0.0-0.1) 02/11/22 06:04 Absolute Nucleated RBC 0.0 /100WBC 02/11/22 06:04 Sodium 135 mmol/L (136-145) L 02/11/22 06:04 Corrected Sodium TNP 02/11/22 06:04 Potassium 3.5 mmol/L (3.5-5.1) 02/11/22 06:04 Chloride 101 mmol/L (98-107) 02/11/22 06:04 Carbon Dioxide 21.5 mmol/L (21-32) 02/11/22 06:04 BUN 10 mg/dL (7-18) 02/11/22 06:04 Creatinine 0.70 mg/dL (0.55-1.02) 02/11/22 06:04 Est GFR (MDRD) Af Amer > 60 (>60) 02/11/22 06:04 Est GFR (MDRD) Non-Af > 60 (>60) 02/11/22 06:04 Glucose 98 mg/dL (65-99) 02/11/22 06:04 Calcium 7.4 mg/dL (8.5-10.1) L 02/11/22 06:04 Corrected Calcium 8.8 mg/dL (8.5-10.1) 02/11/22 06:04 Total Bilirubin 1.50 mg/dL (0.2-1.0) H 02/11/22 06:04 AST 8 Units/L (15-37) L 02/11/22 06:04 ALT < 6 Units/L (12-78) L 02/11/22 06:04 Alkaline Phosphatase 69 Units/L (46-116) 02/11/22 06:04 Creatine Kinase 53 Units/L (26-192) 02/10/22 09:08 Troponin I High Sens 8.4 ng/L (4.0-60.0) 02/10/22 09:08 Total Protein 5.5 g/dL (6.4-8.2) L 02/11/22 06:04 Albumin 2.2 g/dL (3.4-5.0) L 02/11/22 06:04 Globulin 3.3 g/dL (2.5-4.5) 02/11/22 06:04 Albumin/Globulin Ratio 0.7 Ratio (1.1-2.1) L 02/11/22 06:04 Specimen Type Catherized urine 02/06/22 11:50 Urine Color Pale yellow (YELLOW) 02/06/22 11:50 Urine Appearance Clear (CLEAR) 02/06/22 11:50 Urine pH 6.0 (5.0 - 8.0) 02/06/22 11:50 Ur Specific [place] 1.015 (1.000-1.030) 02/06/22 11:50 Urine Protein 1+ (NEGATIVE) 02/06/22 11:50 Urine Glucose (UA) Negative (NEGATIVE) 02/06/22 11:50 Urine Ketones Negative (NEGATIVE) 02/06/22 11:50 Urine Blood 4+ (NEGATIVE) 02/06/22 11:50 Urine Nitrite Negative (NEGATIVE) 02/06/22 11:50 Urine Bilirubin Negative (NEGATIVE) 02/06/22 11:50 Urine Urobilinogen Normal (NORMAL) 02/06/22 11:50 Ur Leukocyte Esterase Negative (NEGATIVE) 02/06/22 11:50 Urine RBC 3-5 /HPF (0-3) A 02/06/22 11:50 Urine WBC 0-2 /HPF (0-5) 02/06/22 11:50 Ur Squamous Epith Cells Negative /HPF (NEGATIVE) 02/06/22 11:50 Calcium Oxalate Crystal Moderate /HPF (NEGATIVE) 02/05/22 02:00 Urine Bacteria Trace /HPF (NEGATIVE) 02/06/22 11:50 Urine Yeast Rare /HPF (NEGATIVE) 02/06/22 11:50 Ur Culture Indicated? No/not indicated 02/06/22 11:50 SARS CoV-2 RNA Rapid KIM Negative (NEGATIVE) 02/04/22 22:15 Tissue Pathology To follow 02/07/22 11:50 Blood Type O POSITIVE 02/09/22 09:27 Antibody Screen Negative 02/09/22 09:27 Crossmatch See Detail 02/09/22 09:27 - Assessment and Plan 2: large open wound Lt leg with undermined skin 20 x 14 cm and skin loss. A Fib , s/p cardiac ablation . arthritis . anemia 2nd blood loss .. no active bleeding .. chronic edema Lt leg s/p node dissection years ago .. same local care .. IV ABT .. for skin graft on Monday .. D/W Pt in details ..
[2022-02-11 10:47] LABS: BILIRUBIN,URINE NEGATIVE (NEGATIVE); BLOOD/HEMOGLOBIN,URINE NEGATIVE (NEGATIVE); GLUCOSE, URINE NEGATIVE (NEGATIVE); KETONES,URINE 3+ (NEGATIVE); LEUKOCYTE ESTERASE ,URINE NEGATIVE (NEGATIVE); NITRITES,URINE NEGATIVE (NEGATIVE); PROTEIN,URINE NEGATIVE (NEGATIVE); UROBILINOGEN,URINE NORMAL (NORMAL)
[2022-02-11 10:56] LABS: APPEARANCE,URINE CLEAR (CLEAR); COLOR,URINE YELLOW (YELLOW)
[2022-02-11] MEDS ORDERED: PHARMACY COMMENT IV NR (20:30)
[2022-02-11 21:03] LABS: CREATININE 0.71 mg/dL (0.55-1.02); VANCOMYCIN,TROUGH 16.3 ug/mL (15-20)
[2022-02-11] MEDS: COLACE CAP 100 MG PO SCH (21:31)
[2022-02-11] MEDS: MIRALAX POWDER (1 DOSE 17 G) PO SCH (21:31)
[2022-02-11] MEDS: NORCO 7.5/325 MG TAB PO PRN (21:33)
[2022-02-11] MEDS: XANAX PO PRN (21:34)
[2022-02-12 06:46] LABS: BASOPHILS # (AUTO) 0.1 X10^3/uL (0.0-0.1); BASOPHILS % (AUTO) 0.8 % (0.2-1.0); EOSINOPHILS # (AUTO) 0.2 x10^3/uL (0.0-0.2); EOSINOPHILS % (AUTO) 1.9 % (0.9-2.9); HEMOGLOBIN 9.9 g/dL (12.0-16.0); LYMPHOCYTES # (AUTO) 0.7 X10^3/uL (1.3-2.9); LYMPHOCYTES % (AUTO) 7.3 % (21.0-51.0); MEAN CORPUSCULAR HEMOGLOBIN 30.9 pg (27.0-34.0); MEAN CORPUSCULAR HGB CONC 35.4 g/dL (33.0-35.0); MEAN CORPUSCULAR VOLUME 87.1 fL (80.0-100.0); MEAN PLATELET VOLUME 6.6 fL (7.4-11.0); MONOCYTES # (AUTO) 1.4 x10^3/uL (0.3-0.8); MONOCYTES % (AUTO) 16.1 % (0.0-13.0); NEUTROPHILS # (AUTO) 6.6 x10^3/uL (2.2-4.8); NEUTROPHILS % (AUTO) 73.9 % (42.0-75.0); RED BLOOD COUNT 3.22 X10^6/uL (3.5-5.4); RED CELL DISTRIBUTION WIDTH 14.3 % (11.6-16.5)
[2022-02-12 06:59] LABS: ALANINE AMINOTRANSFERASE 8 Units/L (12-78); ALKALINE PHOSPHATASE 68 Units/L (46-116); ASPARTATE AMINO TRANSFERASE 10 Units/L (15-37); BLOOD UREA NITROGEN 8 mg/dL (7-18); CALCIUM 7.2 mg/dL (8.5-10.1); CARBON DIOXIDE 23.4 mmol/L (21-32); CHLORIDE 102 mmol/L (98-107); COR CA(FOR HYPOALB) 8.8 mg/dL (8.5-10.1); CREATININE 0.62 mg/dL (0.55-1.02); SODIUM 134 mmol/L (136-145); TOTAL PROTEIN 5.4 g/dL (6.4-8.2); eGFR NON BLACK RACES > 60 (>60)
[2022-02-12] MEDS: NORCO 7.5/325 MG TAB PO PRN (07:31)
[2022-02-12] MEDS: ROCALTROL PO SCH (08:48)
[2022-02-12] MEDS: BETAPACE AF PO SCH ×2 (08:48→20:52)
[2022-02-12] MEDS: COZAAR PO SCH (08:48)
[2022-02-12] MEDS: K-DUR TAB 20 MEQ PO SCH (08:48)
[2022-02-12] MEDS: PROCARDIA XL 24-hr PO SCH ×2 (08:48→20:53)
[2022-02-12] MEDS: CYMBALTA PO SCH (08:48)
[2022-02-12] MEDS: BUSPAR PO SCH ×2 (08:49→20:52)
--- NOTE | 2022-02-12 09:05 | DR.PROGNOT ---
Hospital Progress Notes - Progress Note for Day of: Progress Note Date: 02/12/22 - Chief Complaint Chief Complaint: c/o pain and swelling Lt arm .. having anxiety as well. lab work is norml . afebrile . - Past Medical Family Social History Past Med/Fam/Surg Hx: No changes since H&P Allergies: Allergies mupirocin [From Bactroban] Adverse Reaction (Verified 02/04/22 22:58) - Review Of Systems ROS: No change since H&P - Vital Signs Vital Signs: Temperature 97.9 F Pulse Rate [Radial] 68 Pulse Rate 59 Respiratory Rate 20 Blood Pressure [Right Arm] 134/61 Blood Pressure 162/84 O2 Sat by Pulse Oximetry 96 - Physical Exam Oriented: Normal Eyes: Normal Nose: Normal Throat: Normal Respiratory: Normal Cardiovascular: Normal : Normal GI:Auscultation: Normal GI:Palpation: Normal GI: Tenderness: Normal Skin: negative: Other (moderate edema and erythema Lt arm .. PIC line is not patent . ) Speech Pattern: Clear, Appropriate - Laboratory and Diagnostics Result Diagrams: 02/12/22 06:25 02/12/22 06:25 Labs: 02/10/22 08:27 Blood Blood Culture - Preliminary 02/10/22 09:08 Blood Blood Culture - Preliminary 02/07/22 11:33 Leg - Left Wound Gram Stain - Final 02/07/22 11:33 Leg - Left Wound Culture - Final Staphylococcus Hominis 02/05/22 02:00 Urine,Catheterized Urine Culture - Final Laboratory WBC 9.0 X10^3/uL (3.6-10.0) 02/12/22 06:25 RBC 3.22 X10^6/uL (3.5-5.4) L 02/12/22 06:25 Hgb 9.9 g/dL (12.0-16.0) L 02/12/22 06:25 Hct 28.0 % (36.0-47.0) L 02/12/22 06:25 MCV 87.1 fL (80.0-100.0) 02/12/22 06:25 MCH 30.9 pg (27.0-34.0) 02/12/22 06:25 MCHC 35.4 g/dL (33.0-35.0) H 02/12/22 06:25 RDW 14.3 % (11.6-16.5) 02/12/22 06:25 Plt Count 335 X10^3/uL (150.0-450.0) 02/12/22 06:25 MPV 6.6 fL (7.4-11.0) L 02/12/22 06:25 Neut % (Auto) 73.9 % (42.0-75.0) 02/12/22 06:25 Lymph % (Auto) 7.3 % (21.0-51.0) L 02/12/22 06:25 [place] % (Auto) 16.1 % (0.0-13.0) H 02/12/22 06:25 Eos % (Auto) 1.9 % (0.9-2.9) 02/12/22 06:25 Baso % (Auto) 0.8 % (0.2-1.0) 02/12/22 06:25 Neut # (Auto) 6.6 x10^3/uL (2.2-4.8) H 02/12/22 06:25 Lymph # (Auto) 0.7 X10^3/uL (1.3-2.9) L 02/12/22 06:25 [place] # (Auto) 1.4 x10^3/uL (0.3-0.8) H 02/12/22 06:25 Eos # (Auto) 0.2 x10^3/uL (0.0-0.2) 02/12/22 06:25 Baso # (Auto) 0.1 X10^3/uL (0.0-0.1) 02/12/22 06:25 Absolute Nucleated RBC 0.1 /100WBC 02/12/22 06:25 Sodium 134 mmol/L (136-145) L 02/12/22 06:25 Corrected Sodium TNP 02/12/22 06:25 Potassium 3.3 mmol/L (3.5-5.1) L 02/12/22 06:25 Chloride 102 mmol/L (98-107) 02/12/22 06:25 Carbon Dioxide 23.4 mmol/L (21-32) 02/12/22 06:25 BUN 8 mg/dL (7-18) 02/12/22 06:25 Creatinine 0.62 mg/dL (0.55-1.02) 02/12/22 06:25 Est GFR (MDRD) Af Amer > 60 (>60) 02/12/22 06:25 Est GFR (MDRD) Non-Af > 60 (>60) 02/12/22 06:25 Glucose 103 mg/dL (65-99) H 02/12/22 06:25 Calcium 7.2 mg/dL (8.5-10.1) L 02/12/22 06:25 Corrected Calcium 8.8 mg/dL (8.5-10.1) 02/12/22 06:25 Total Bilirubin 0.90 mg/dL (0.2-1.0) 02/12/22 06:25 AST 10 Units/L (15-37) L 02/12/22 06:25 ALT 8 Units/L (12-78) L 02/12/22 06:25 Alkaline Phosphatase 68 Units/L (46-116) 02/12/22 06:25 Creatine Kinase 53 Units/L (26-192) 02/10/22 09:08 Troponin I High Sens 8.4 ng/L (4.0-60.0) 02/10/22 09:08 Total Protein 5.4 g/dL (6.4-8.2) L 02/12/22 06:25 Albumin 2.0 g/dL (3.4-5.0) L 02/12/22 06:25 Globulin 3.4 g/dL (2.5-4.5) 02/12/22 06:25 Albumin/Globulin Ratio 0.6 Ratio (1.1-2.1) L 02/12/22 06:25 Specimen Type Clean catch urine 02/11/22 10:35 Urine Color Yellow (YELLOW) 02/11/22 10:35 Urine Appearance Clear (CLEAR) 02/11/22 10:35 Urine pH 6.0 (5.0 - 8.0) 02/11/22 10:35 Ur Specific [place] 1.015 (1.000-1.030) 02/11/22 10:35 Urine Protein Negative (NEGATIVE) 02/11/22 10:35 Urine Glucose (UA) Negative (NEGATIVE) 02/11/22 10:35 Urine Ketones 3+ (NEGATIVE) 02/11/22 10:35 Urine Blood Negative (NEGATIVE) 02/11/22 10:35 Urine Nitrite Negative (NEGATIVE) 02/11/22 10:35 Urine Bilirubin Negative (NEGATIVE) 02/11/22 10:35 Urine Urobilinogen Normal (NORMAL) 02/11/22 10:35 Ur Leukocyte Esterase Negative (NEGATIVE) 02/11/22 10:35 Urine RBC 3-5 /HPF (0-3) A 02/06/22 11:50 Urine WBC 0-2 /HPF (0-5) 02/06/22 11:50 Ur Squamous Epith Cells Negative /HPF (NEGATIVE) 02/06/22 11:50 Calcium Oxalate Crystal Moderate /HPF (NEGATIVE) 02/05/22 02:00 Urine Bacteria Trace /HPF (NEGATIVE) 02/06/22 11:50 Urine Yeast Rare /HPF (NEGATIVE) 02/06/22 11:50 Ur Culture Indicated? No/not indicated 02/06/22 11:50 Vancomycin Trough 16.3 ug/mL (15-20) 02/11/22 20:40 SARS CoV-2 RNA Rapid KIM Negative (NEGATIVE) 02/04/22 22:15 Tissue Pathology To follow 02/07/22 11:50 Blood Type O POSITIVE 02/09/22 09:27 Antibody Screen Negative 02/09/22 09:27 Crossmatch See Detail 02/09/22 09:27 - Assessment and Plan 2: large open wound Lt leg with undermined skin 20 x 14 cm and skin loss . PIC lineis not patent .. A Fib , s/p cardiac ablation . arthritis . anemia 2nd blood loss .. no active bleeding .. chronic edema Lt leg s/p node dissection years ago .. same local care .. IV ABT .. for skin graft on Monday .. D/W Pt in details .. to place new PIC line .
[2022-02-12] MEDS: VANCOMYCIN IV *PREMIX 1.25 G/250 ML BAG 1.25 G/250 ML PIGGYBACK IV SCH ×2 (10:00→20:50)
[2022-02-12] MEDS: MORPHINE SULFATE INJ 4 MG IVP PRN (10:10)
[2022-02-12] MEDS: XANAX PO PRN ×2 (10:20→20:53)
--- NOTE | 2022-02-12 11:43 | PCM.PROG ---
Progress Note Progress Note for Day of Date of Exam: 02/12/22 Subjective Subjective: Pt is a 77 year old female w/ hx of Atrial fib, s/p cardiac ablation, arthritis, anemia secondary to blood loss, no active bleeding. She has large open wound in her left lower leg. This morning she is resting comfortably in bed. She will have her PICC line replaced today. She is receiving local wound care. Labs/imaging: Wbc 9, Hgb 9.9, Plt 335, Na 134, K 3.3, Creatinine 0.62, Glucose 103. Continue antibiotics: IV Vancomycin. Surgery plan for skin graft on Monday. Otherwise, continue with current treatment plan. Continue to monitor and follow up labs. Past Medical Family Social History Past Med/Fam/Surg Hx: No changes since H&P Allergies: Allergies mupirocin [From Bactroban] Adverse Reaction (Verified 02/04/22 22:58) Review of Systems ROS: No change since H&P Vital Signs and I&O's Vital Signs: Temperature 97.6 F Pulse Rate [Radial] 75 Pulse Rate 59 Respiratory Rate 22 Blood Pressure [Right Arm] 148/75 Blood Pressure 162/84 O2 Sat by Pulse Oximetry 93 Intake and Output: Intake & Output 02/09/22 02/10/22 02/11/22 02/12/22 23:59 23:59 23:59 23:59 Intake Total 2470 / 2470 2532 / 2532 1950 / 1950 150 / 150 Output Total 250 / 250 Balance 2220 / 2220 2532 / 2532 1949 / 1950 150 / 150 Physical Exam Oriented: Normal Eyes: Normal Nose: Normal Throat: Normal Respiratory: Normal Cardiovascular: Normal : Normal Auscultation: Bowel Sounds: Normal Tenderness: Normal Skin: negative Other (moderate edema and erythema Lt arm .. PICC line ) Speech Pattern: Clear and Appropriate Laboratory and Diagnostics Result Diagrams: 02/12/22 06:25 02/12/22 06:25 Labs: 02/11/22 10:35 Urine,Clean Catch Urine Culture - Preliminary 02/10/22 09:08 Blood Blood Culture - Preliminary 02/10/22 08:27 Blood Blood Culture - Preliminary 02/07/22 11:33 Leg - Left Wound Gram Stain - Final 02/07/22 11:33 Leg - Left Wound Culture - Final Staphylococcus Hominis 02/05/22 02:00 Urine,Catheterized Urine Culture - Final Laboratory WBC 9.0 X10^3/uL (3.6-10.0) 02/12/22 06:25 RBC 3.22 X10^6/uL (3.5-5.4) L 02/12/22 06:25 Hgb 9.9 g/dL (12.0-16.0) L 02/12/22 06:25 Hct 28.0 % (36.0-47.0) L 02/12/22 06:25 MCV 87.1 fL (80.0-100.0) 02/12/22 06:25 MCH 30.9 pg (27.0-34.0) 02/12/22 06:25 MCHC 35.4 g/dL (33.0-35.0) H 02/12/22 06:25 RDW 14.3 % (11.6-16.5) 02/12/22 06:25 Plt Count 335 X10^3/uL (150.0-450.0) 02/12/22 06:25 MPV 6.6 fL (7.4-11.0) L 02/12/22 06:25 Neut % (Auto) 73.9 % (42.0-75.0) 02/12/22 06:25 Lymph % (Auto) 7.3 % (21.0-51.0) L 02/12/22 06:25 [place] % (Auto) 16.1 % (0.0-13.0) H 02/12/22 06:25 Eos % (Auto) 1.9 % (0.9-2.9) 02/12/22 06:25 Baso % (Auto) 0.8 % (0.2-1.0) 02/12/22 06:25 Neut # (Auto) 6.6 x10^3/uL (2.2-4.8) H 02/12/22 06:25 Lymph # (Auto) 0.7 X10^3/uL (1.3-2.9) L 02/12/22 06:25 [place] # (Auto) 1.4 x10^3/uL (0.3-0.8) H 02/12/22 06:25 Eos # (Auto) 0.2 x10^3/uL (0.0-0.2) 02/12/22 06:25 Baso # (Auto) 0.1 X10^3/uL (0.0-0.1) 02/12/22 06:25 Absolute Nucleated RBC 0.1 /100WBC 02/12/22 06:25 Sodium 134 mmol/L (136-145) L 02/12/22 06:25 Corrected Sodium TNP 02/12/22 06:25 Potassium 3.3 mmol/L (3.5-5.1) L 02/12/22 06:25 Chloride 102 mmol/L (98-107) 02/12/22 06:25 Carbon Dioxide 23.4 mmol/L (21-32) 02/12/22 06:25 BUN 8 mg/dL (7-18) 02/12/22 06:25 Creatinine 0.62 mg/dL (0.55-1.02) 02/12/22 06:25 Est GFR (MDRD) Af Amer > 60 (>60) 02/12/22 06:25 Est GFR (MDRD) Non-Af > 60 (>60) 02/12/22 06:25 Glucose 103 mg/dL (65-99) H 02/12/22 06:25 Calcium 7.2 mg/dL (8.5-10.1) L 02/12/22 06:25 Corrected Calcium 8.8 mg/dL (8.5-10.1) 02/12/22 06:25 Total Bilirubin 0.90 mg/dL (0.2-1.0) 02/12/22 06:25 AST 10 Units/L (15-37) L 02/12/22 06:25 ALT 8 Units/L (12-78) L 02/12/22 06:25 Alkaline Phosphatase 68 Units/L (46-116) 02/12/22 06:25 Creatine Kinase 53 Units/L (26-192) 02/10/22 09:08 Troponin I High Sens 8.4 ng/L (4.0-60.0) 02/10/22 09:08 Total Protein 5.4 g/dL (6.4-8.2) L 02/12/22 06:25 Albumin 2.0 g/dL (3.4-5.0) L 02/12/22 06:25 Globulin 3.4 g/dL (2.5-4.5) 02/12/22 06:25 Albumin/Globulin Ratio 0.6 Ratio (1.1-2.1) L 02/12/22 06:25 Specimen Type Clean catch urine 02/11/22 10:35 Urine Color Yellow (YELLOW) 02/11/22 10:35 Urine Appearance Clear (CLEAR) 02/11/22 10:35 Urine pH 6.0 (5.0 - 8.0) 02/11/22 10:35 Ur Specific [place] 1.015 (1.000-1.030) 02/11/22 10:35 Urine Protein Negative (NEGATIVE) 02/11/22 10:35 Urine Glucose (UA) Negative (NEGATIVE) 02/11/22 10:35 Urine Ketones 3+ (NEGATIVE) 02/11/22 10:35 Urine Blood Negative (NEGATIVE) 02/11/22 10:35 Urine Nitrite Negative (NEGATIVE) 02/11/22 10:35 Urine Bilirubin Negative (NEGATIVE) 02/11/22 10:35 Urine Urobilinogen Normal (NORMAL) 02/11/22 10:35 Ur Leukocyte Esterase Negative (NEGATIVE) 02/11/22 10:35 Urine RBC 3-5 /HPF (0-3) A 02/06/22 11:50 Urine WBC 0-2 /HPF (0-5) 02/06/22 11:50 Ur Squamous Epith Cells Negative /HPF (NEGATIVE) 02/06/22 11:50 Calcium Oxalate Crystal Moderate /HPF (NEGATIVE) 02/05/22 02:00 Urine Bacteria Trace /HPF (NEGATIVE) 02/06/22 11:50 Urine Yeast Rare /HPF (NEGATIVE) 02/06/22 11:50 Ur Culture Indicated? No/not indicated 02/06/22 11:50 Vancomycin Trough 16.3 ug/mL (15-20) 02/11/22 20:40 SARS CoV-2 RNA Rapid KIM Negative (NEGATIVE) 02/04/22 22:15 Tissue Pathology To follow 02/07/22 11:50 Blood Type O POSITIVE 02/09/22 09:27 Antibody Screen Negative 02/09/22 09:27 Crossmatch See Detail 02/09/22 09:27 Plan (1) Wound of left lower extremity: Status: Acute
[2022-02-12] MEDS: COLACE CAP 100 MG PO SCH (20:52)
[2022-02-12] MEDS: MIRALAX POWDER (1 DOSE 17 G) PO SCH (20:56)
[2022-02-13 06:10] LABS: BASOPHILS # (AUTO) 0.1 X10^3/uL (0.0-0.1); BASOPHILS % (AUTO) 0.6 % (0.2-1.0); EOSINOPHILS # (AUTO) 0.2 x10^3/uL (0.0-0.2); EOSINOPHILS % (AUTO) 2.7 % (0.9-2.9); HEMATOCRIT 28.3 % (36.0-47.0); LYMPHOCYTES # (AUTO) 0.7 X10^3/uL (1.3-2.9); MEAN CORPUSCULAR HEMOGLOBIN 30.9 pg (27.0-34.0); MEAN CORPUSCULAR HGB CONC 35.3 g/dL (33.0-35.0); MEAN CORPUSCULAR VOLUME 87.4 fL (80.0-100.0); MEAN PLATELET VOLUME 6.4 fL (7.4-11.0); MONOCYTES # (AUTO) 1.4 x10^3/uL (0.3-0.8); MONOCYTES % (AUTO) 16.8 % (0.0-13.0); NEUTROPHILS # (AUTO) 5.8 x10^3/uL (2.2-4.8); NEUTROPHILS % (AUTO) 70.9 % (42.0-75.0); RED BLOOD COUNT 3.24 X10^6/uL (3.5-5.4); RED CELL DISTRIBUTION WIDTH 14.2 % (11.6-16.5); WHITE BLOOD COUNT 8.1 X10^3/uL (3.6-10.0)
[2022-02-13 06:32] LABS: ALANINE AMINOTRANSFERASE 7 Units/L (12-78); ALKALINE PHOSPHATASE 68 Units/L (46-116); ASPARTATE AMINO TRANSFERASE 9 Units/L (15-37); BLOOD UREA NITROGEN 6 mg/dL (7-18); CALCIUM 7.2 mg/dL (8.5-10.1); CHLORIDE 104 mmol/L (98-107); COR CA(FOR HYPOALB) 8.8 mg/dL (8.5-10.1); CREATININE 0.54 mg/dL (0.55-1.02); MAGNESIUM 1.7 mg/dL (1.7-2.9); SODIUM 136 mmol/L (136-145); TOTAL PROTEIN 5.4 g/dL (6.4-8.2); eGFR NON BLACK RACES > 60 (>60)
[2022-02-13] MEDS: MORPHINE SULFATE INJ 4 MG IVP PRN ×2 (07:20→21:21)
[2022-02-13] MEDS: K-DUR TAB 20 MEQ PO SCH (08:31)
[2022-02-13] MEDS: VANCOMYCIN IV *PREMIX 1.25 G/250 ML BAG 1.25 G/250 ML PIGGYBACK IV SCH (08:31)
[2022-02-13] MEDS: XANAX PO PRN ×2 (08:31→21:18)
[2022-02-13] MEDS: BETAPACE AF PO SCH ×2 (08:32→21:17)
[2022-02-13] MEDS: ROCALTROL PO SCH (08:32)
[2022-02-13] MEDS: PROCARDIA XL 24-hr PO SCH ×2 (08:32→21:17)
[2022-02-13] MEDS: BUSPAR PO SCH ×2 (08:32→21:19)
[2022-02-13] MEDS: COZAAR PO SCH (08:32)
[2022-02-13] MEDS: CYMBALTA PO SCH (08:32)
--- NOTE | 2022-02-13 09:28 | DR.PROGNOT ---
Hospital Progress Notes - Progress Note for Day of: Progress Note Date: 02/13/22 - Chief Complaint Chief Complaint: more comfortable today .. having itching of her back .. PICC line is patent .. ready for skin graft in am . - Past Medical Family Social History Past Med/Fam/Surg Hx: No changes since H&P Allergies: Allergies mupirocin [From Bactroban] Adverse Reaction (Verified 02/04/22 22:58) - Review Of Systems ROS: No change since H&P - Vital Signs Vital Signs: Temperature 98.2 F Pulse Rate [Radial] 80 Pulse Rate 59 Respiratory Rate 18 Blood Pressure [Right Arm] 135/77 Blood Pressure 162/84 O2 Sat by Pulse Oximetry 94 - Physical Exam Oriented: Normal Eyes: Normal Nose: Normal Throat: Normal Respiratory: Normal Cardiovascular: Normal : Normal GI:Auscultation: Normal GI:Palpation: Normal GI: Tenderness: Normal Skin: negative: Other (moderate edema and erythema Lt arm .. PICC line) Speech Pattern: Clear, Appropriate - Laboratory and Diagnostics Result Diagrams: 02/13/22 05:55 02/13/22 05:55 Labs: 02/11/22 10:35 Urine,Clean Catch Urine Culture - Final 02/10/22 09:08 Blood Blood Culture - Final Staphylococcus Hominis 02/10/22 08:27 Blood Blood Culture - Preliminary 02/07/22 11:33 Leg - Left Wound Gram Stain - Final 02/07/22 11:33 Leg - Left Wound Culture - Final Staphylococcus Hominis 02/05/22 02:00 Urine,Catheterized Urine Culture - Final Laboratory WBC 8.1 X10^3/uL (3.6-10.0) 02/13/22 05:55 RBC 3.24 X10^6/uL (3.5-5.4) L 02/13/22 05:55 Hgb 10.0 g/dL (12.0-16.0) L 02/13/22 05:55 Hct 28.3 % (36.0-47.0) L 02/13/22 05:55 MCV 87.4 fL (80.0-100.0) 02/13/22 05:55 MCH 30.9 pg (27.0-34.0) 02/13/22 05:55 MCHC 35.3 g/dL (33.0-35.0) H 02/13/22 05:55 RDW 14.2 % (11.6-16.5) 02/13/22 05:55 Plt Count 371 X10^3/uL (150.0-450.0) 02/13/22 05:55 MPV 6.4 fL (7.4-11.0) L 02/13/22 05:55 Neut % (Auto) 70.9 % (42.0-75.0) 02/13/22 05:55 Lymph % (Auto) 9.0 % (21.0-51.0) L 02/13/22 05:55 [place] % (Auto) 16.8 % (0.0-13.0) H 02/13/22 05:55 Eos % (Auto) 2.7 % (0.9-2.9) 02/13/22 05:55 Baso % (Auto) 0.6 % (0.2-1.0) 02/13/22 05:55 Neut # (Auto) 5.8 x10^3/uL (2.2-4.8) H 02/13/22 05:55 Lymph # (Auto) 0.7 X10^3/uL (1.3-2.9) L 02/13/22 05:55 [place] # (Auto) 1.4 x10^3/uL (0.3-0.8) H 02/13/22 05:55 Eos # (Auto) 0.2 x10^3/uL (0.0-0.2) 02/13/22 05:55 Baso # (Auto) 0.1 X10^3/uL (0.0-0.1) 02/13/22 05:55 Absolute Nucleated RBC 0.0 /100WBC 02/13/22 05:55 Sodium 136 mmol/L (136-145) 02/13/22 05:55 Corrected Sodium TNP 02/13/22 05:55 Potassium 3.5 mmol/L (3.5-5.1) 02/13/22 05:55 Chloride 104 mmol/L (98-107) 02/13/22 05:55 Carbon Dioxide 24.0 mmol/L (21-32) 02/13/22 05:55 BUN 6 mg/dL (7-18) L 02/13/22 05:55 Creatinine 0.54 mg/dL (0.55-1.02) L 02/13/22 05:55 Est GFR (MDRD) Af Amer > 60 (>60) 02/13/22 05:55 Est GFR (MDRD) Non-Af > 60 (>60) 02/13/22 05:55 Glucose 97 mg/dL (65-99) 02/13/22 05:55 Calcium 7.2 mg/dL (8.5-10.1) L 02/13/22 05:55 Corrected Calcium 8.8 mg/dL (8.5-10.1) 02/13/22 05:55 Magnesium 1.7 mg/dL (1.7-2.9) 02/13/22 05:55 Total Bilirubin 0.70 mg/dL (0.2-1.0) 02/13/22 05:55 AST 9 Units/L (15-37) L 02/13/22 05:55 ALT 7 Units/L (12-78) L 02/13/22 05:55 Alkaline Phosphatase 68 Units/L (46-116) 02/13/22 05:55 Creatine Kinase 53 Units/L (26-192) 02/10/22 09:08 Troponin I High Sens 8.4 ng/L (4.0-60.0) 02/10/22 09:08 Total Protein 5.4 g/dL (6.4-8.2) L 02/13/22 05:55 Albumin 2.0 g/dL (3.4-5.0) L 02/13/22 05:55 Globulin 3.4 g/dL (2.5-4.5) 02/13/22 05:55 Albumin/Globulin Ratio 0.6 Ratio (1.1-2.1) L 02/13/22 05:55 Specimen Type Clean catch urine 02/11/22 10:35 Urine Color Yellow (YELLOW) 02/11/22 10:35 Urine Appearance Clear (CLEAR) 02/11/22 10:35 Urine pH 6.0 (5.0 - 8.0) 02/11/22 10:35 Ur Specific [place] 1.015 (1.000-1.030) 02/11/22 10:35 Urine Protein Negative (NEGATIVE) 02/11/22 10:35 Urine Glucose (UA) Negative (NEGATIVE) 02/11/22 10:35 Urine Ketones 3+ (NEGATIVE) 02/11/22 10:35 Urine Blood Negative (NEGATIVE) 02/11/22 10:35 Urine Nitrite Negative (NEGATIVE) 02/11/22 10:35 Urine Bilirubin Negative (NEGATIVE) 02/11/22 10:35 Urine Urobilinogen Normal (NORMAL) 02/11/22 10:35 Ur Leukocyte Esterase Negative (NEGATIVE) 02/11/22 10:35 Urine RBC 3-5 /HPF (0-3) A 02/06/22 11:50 Urine WBC 0-2 /HPF (0-5) 02/06/22 11:50 Ur Squamous Epith Cells Negative /HPF (NEGATIVE) 02/06/22 11:50 Calcium Oxalate Crystal Moderate /HPF (NEGATIVE) 02/05/22 02:00 Urine Bacteria Trace /HPF (NEGATIVE) 02/06/22 11:50 Urine Yeast Rare /HPF (NEGATIVE) 02/06/22 11:50 Ur Culture Indicated? No/not indicated 02/06/22 11:50 Vancomycin Trough 16.3 ug/mL (15-20) 02/11/22 20:40 SARS CoV-2 RNA Rapid KIM Negative (NEGATIVE) 02/04/22 22:15 Tissue Pathology To follow 02/07/22 11:50 Blood Type O POSITIVE 02/09/22 09:27 Antibody Screen Negative 02/09/22 09:27 Crossmatch See Detail 02/09/22 09:27 - Assessment and Plan 2: large open wound Lt leg with undermined skin 20 x 14 cm and skin loss . A Fib , s/p cardiac ablation . arthritis . anemia 2nd blood loss .. no active bleeding .. chronic edema Lt leg s/p node dissection years ago .. same local care .. IV ABT .. for skin graft on Monday .. D/W Pt in details ..
[2022-02-13] MEDS: BENADRYL CAP/TAB 25 MG PO PRN (10:30)
--- NOTE | 2022-02-13 11:30 | PCM.PROG ---
Progress Note Progress Note for Day of Date of Exam: 02/13/22 Subjective Subjective: Pt is a 77 year old female w/ hx of Atrial fib, s/p cardiac ablation, arthritis, anemia secondary to blood loss, no active bleeding. She has large open wound in her left lower leg. This morning she is resting comfortably in bed. She has a PICC line. She is receiving local wound care. Labs/imaging: Wbc 8.1, Hgb 10, Plt 371, Na 136, K 3.5, Creatinine 0.54, Glucose 97. Continue antibiotics: IV Vancomycin. Surgery plan for skin graft on Monday. She does have some itching and a small rash on right lower back. Will add triamcinolone cream. Otherwise, continue with current treatment plan. Continue to monitor and follow up labs. Past Medical Family Social History Past Med/Fam/Surg Hx: No changes since H&P Allergies: Allergies mupirocin [From Bactroban] Adverse Reaction (Verified 02/04/22 22:58) Review of Systems ROS: No change since H&P Vital Signs and I&O's Vital Signs: Temperature 98.2 F Pulse Rate [Radial] 80 Pulse Rate 59 Respiratory Rate 18 Blood Pressure [Right Arm] 135/77 Blood Pressure 162/84 O2 Sat by Pulse Oximetry 94 Intake and Output: Intake & Output 02/10/22 02/11/22 02/12/22 02/13/22 23:59 23:59 23:59 23:59 Intake Total 2531 / 2 1949 / 1949 1637 / 1637 191 / 191 Balance 2 / 2 1949 / 1949 1637 / 1637 191 / 191 Physical Exam Oriented: Normal Eyes: Normal Nose: Normal Throat: Normal Respiratory: Normal Cardiovascular: Normal : Normal Auscultation: Bowel Sounds: Normal Tenderness: Normal Skin: negative Other (moderate edema and erythema Lt arm .. PICC line ) Speech Pattern: Clear and Appropriate Laboratory and Diagnostics Result Diagrams: 02/13/22 05:55 02/13/22 05:55 Labs: 02/11/22 10:35 Urine,Clean Catch Urine Culture - Final 02/10/22 09:08 Blood Blood Culture - Final Staphylococcus Hominis 02/10/22 08:27 Blood Blood Culture - Preliminary 02/07/22 11:33 Leg - Left Wound Gram Stain - Final 02/07/22 11:33 Leg - Left Wound Culture - Final Staphylococcus Hominis 02/05/22 02:00 Urine,Catheterized Urine Culture - Final Laboratory WBC 8.1 X10^3/uL (3.6-10.0) 02/13/22 05:55 RBC 3.24 X10^6/uL (3.5-5.4) L 02/13/22 05:55 Hgb 10.0 g/dL (12.0-16.0) L 02/13/22 05:55 Hct 28.3 % (36.0-47.0) L 02/13/22 05:55 MCV 87.4 fL (80.0-100.0) 02/13/22 05:55 MCH 30.9 pg (27.0-34.0) 02/13/22 05:55 MCHC 35.3 g/dL (33.0-35.0) H 02/13/22 05:55 RDW 14.2 % (11.6-16.5) 02/13/22 05:55 Plt Count 371 X10^3/uL (150.0-450.0) 02/13/22 05:55 MPV 6.4 fL (7.4-11.0) L 02/13/22 05:55 Neut % (Auto) 70.9 % (42.0-75.0) 02/13/22 05:55 Lymph % (Auto) 9.0 % (21.0-51.0) L 02/13/22 05:55 [place] % (Auto) 16.8 % (0.0-13.0) H 02/13/22 05:55 Eos % (Auto) 2.7 % (0.9-2.9) 02/13/22 05:55 Baso % (Auto) 0.6 % (0.2-1.0) 02/13/22 05:55 Neut # (Auto) 5.8 x10^3/uL (2.2-4.8) H 02/13/22 05:55 Lymph # (Auto) 0.7 X10^3/uL (1.3-2.9) L 02/13/22 05:55 [place] # (Auto) 1.4 x10^3/uL (0.3-0.8) H 02/13/22 05:55 Eos # (Auto) 0.2 x10^3/uL (0.0-0.2) 02/13/22 05:55 Baso # (Auto) 0.1 X10^3/uL (0.0-0.1) 02/13/22 05:55 Absolute Nucleated RBC 0.0 /100WBC 02/13/22 05:55 Sodium 136 mmol/L (136-145) 02/13/22 05:55 Corrected Sodium TNP 02/13/22 05:55 Potassium 3.5 mmol/L (3.5-5.1) 02/13/22 05:55 Chloride 104 mmol/L (98-107) 02/13/22 05:55 Carbon Dioxide 24.0 mmol/L (21-32) 02/13/22 05:55 BUN 6 mg/dL (7-18) L 02/13/22 05:55 Creatinine 0.54 mg/dL (0.55-1.02) L 02/13/22 05:55 Est GFR (MDRD) Af Amer > 60 (>60) 02/13/22 05:55 Est GFR (MDRD) Non-Af > 60 (>60) 02/13/22 05:55 Glucose 97 mg/dL (65-99) 02/13/22 05:55 Calcium 7.2 mg/dL (8.5-10.1) L 02/13/22 05:55 Corrected Calcium 8.8 mg/dL (8.5-10.1) 02/13/22 05:55 Magnesium 1.7 mg/dL (1.7-2.9) 02/13/22 05:55 Total Bilirubin 0.70 mg/dL (0.2-1.0) 02/13/22 05:55 AST 9 Units/L (15-37) L 02/13/22 05:55 ALT 7 Units/L (12-78) L 02/13/22 05:55 Alkaline Phosphatase 68 Units/L (46-116) 02/13/22 05:55 Creatine Kinase 53 Units/L (26-192) 02/10/22 09:08 Troponin I High Sens 8.4 ng/L (4.0-60.0) 02/10/22 09:08 Total Protein 5.4 g/dL (6.4-8.2) L 02/13/22 05:55 Albumin 2.0 g/dL (3.4-5.0) L 02/13/22 05:55 Globulin 3.4 g/dL (2.5-4.5) 02/13/22 05:55 Albumin/Globulin Ratio 0.6 Ratio (1.1-2.1) L 02/13/22 05:55 Specimen Type Clean catch urine 02/11/22 10:35 Urine Color Yellow (YELLOW) 02/11/22 10:35 Urine Appearance Clear (CLEAR) 02/11/22 10:35 Urine pH 6.0 (5.0 - 8.0) 02/11/22 10:35 Ur Specific [place] 1.015 (1.000-1.030) 02/11/22 10:35 Urine Protein Negative (NEGATIVE) 02/11/22 10:35 Urine Glucose (UA) Negative (NEGATIVE) 02/11/22 10:35 Urine Ketones 3+ (NEGATIVE) 02/11/22 10:35 Urine Blood Negative (NEGATIVE) 02/11/22 10:35 Urine Nitrite Negative (NEGATIVE) 02/11/22 10:35 Urine Bilirubin Negative (NEGATIVE) 02/11/22 10:35 Urine Urobilinogen Normal (NORMAL) 02/11/22 10:35 Ur Leukocyte Esterase Negative (NEGATIVE) 02/11/22 10:35 Urine RBC 3-5 /HPF (0-3) A 02/06/22 11:50 Urine WBC 0-2 /HPF (0-5) 02/06/22 11:50 Ur Squamous Epith Cells Negative /HPF (NEGATIVE) 02/06/22 11:50 Calcium Oxalate Crystal Moderate /HPF (NEGATIVE) 02/05/22 02:00 Urine Bacteria Trace /HPF (NEGATIVE) 02/06/22 11:50 Urine Yeast Rare /HPF (NEGATIVE) 02/06/22 11:50 Ur Culture Indicated? No/not indicated 02/06/22 11:50 Vancomycin Trough 16.3 ug/mL (15-20) 02/11/22 20:40 SARS CoV-2 RNA Rapid KIM Negative (NEGATIVE) 02/04/22 22:15 Tissue Pathology To follow 02/07/22 11:50 Blood Type O POSITIVE 02/09/22 09:27 Antibody Screen Negative 02/09/22 09:27 Crossmatch See Detail 02/09/22 09:27 Plan (1) Wound of left lower extremity: Status: Acute
[2022-02-13 20:43] LABS: CREATININE 0.48 mg/dL (0.55-1.02)
[2022-02-13 20:45] LABS: VANCOMYCIN,TROUGH 20.5 ug/mL (15-20)
[2022-02-13] MEDS: COLACE CAP 100 MG PO SCH (21:16)
[2022-02-13] MEDS: MIRALAX POWDER (1 DOSE 17 G) PO SCH (21:19)
[2022-02-13] MEDS: MAGNESIUM SULFATE 1 GRAM/100 mL PREMIX 1 G/100 ML BAG IV PRN (23:17)
[2022-02-14] MEDS: VANCOMYCIN IV *PREMIX 1 G/200 ML BAG 1 G/200 ML PIGGYBACK IV SCH ×3 (00:06→20:27)
[2022-02-14] MEDS: MAGNESIUM SULFATE 1 GRAM/100 mL PREMIX 1 G/100 ML BAG IV PRN (00:28)
[2022-02-14] MEDS: XANAX PO PRN ×2 (06:08→20:25)
[2022-02-14 06:09] LABS: BASOPHILS % (AUTO) 0.5 % (0.2-1.0); EOSINOPHILS # (AUTO) 0.2 x10^3/uL (0.0-0.2); EOSINOPHILS % (AUTO) 3.3 % (0.9-2.9); HEMATOCRIT 29.4 % (36.0-47.0); HEMOGLOBIN 10.5 g/dL (12.0-16.0); LYMPHOCYTES # (AUTO) 0.9 X10^3/uL (1.3-2.9); LYMPHOCYTES % (AUTO) 12.3 % (21.0-51.0); MEAN CORPUSCULAR HEMOGLOBIN 30.9 pg (27.0-34.0); MEAN CORPUSCULAR HGB CONC 35.7 g/dL (33.0-35.0); MEAN CORPUSCULAR VOLUME 86.5 fL (80.0-100.0); MEAN PLATELET VOLUME 6.6 fL (7.4-11.0); MONOCYTES # (AUTO) 1.2 x10^3/uL (0.3-0.8); MONOCYTES % (AUTO) 16.2 % (0.0-13.0); NEUTROPHILS # (AUTO) 5.1 x10^3/uL (2.2-4.8); NEUTROPHILS % (AUTO) 67.7 % (42.0-75.0); RED CELL DISTRIBUTION WIDTH 14.2 % (11.6-16.5); WHITE BLOOD COUNT 7.6 X10^3/uL (3.6-10.0)
[2022-02-14 06:11] LABS: ALANINE AMINOTRANSFERASE 7 Units/L (12-78); ALKALINE PHOSPHATASE 72 Units/L (46-116); ASPARTATE AMINO TRANSFERASE 6 Units/L (15-37); BLOOD UREA NITROGEN 4 mg/dL (7-18); CALCIUM 7.4 mg/dL (8.5-10.1); CARBON DIOXIDE 23.6 mmol/L (21-32); CHLORIDE 105 mmol/L (98-107); CREATININE 0.52 mg/dL (0.55-1.02); MAGNESIUM 2.1 mg/dL (1.7-2.9); SODIUM 138 mmol/L (136-145); TOTAL PROTEIN 5.6 g/dL (6.4-8.2); eGFR NON BLACK RACES > 60 (>60)
[2022-02-14] MEDS: MORPHINE SULFATE INJ 4 MG IVP PRN ×2 (07:59→20:27)
[2022-02-14 08:55] VITALS: BMI 32.4
[2022-02-14] MEDS: BETAPACE AF PO SCH ×2 (09:31→20:26)
[2022-02-14] MEDS: COZAAR PO SCH (09:35)
[2022-02-14] MEDS ORDERED: LR 1,000 ML IV 1,000 ML IV ONE (10:11)
[2022-02-14] MEDS ORDERED: PRECEDEX INJ VIAL IVP ONE (10:17)
[2022-02-14] MEDS ORDERED: DIPRIVAN VIAL 20 ML ONE (10:17)
[2022-02-14] MEDS ORDERED: FENTANYL VIAL INJ 100 mcg ONE (10:18)
[2022-02-14] MEDS ORDERED: BETADINE SOLN ONE ×2 (10:34→11:13)
[2022-02-14] MEDS ORDERED: POLYMYXIN B SULFATE ONE (10:59)
[2022-02-14] MEDS ORDERED: ADRENALINE CHL INJ ONE (11:27)
[2022-02-14] MEDS ORDERED: PHENERGAN INJ 25 MG IM PRN (12:29)
[2022-02-14] MEDS ORDERED: REGLAN INJ 10 MG VIAL IVP PRN (12:29)
[2022-02-14] MEDS ORDERED: BARHEMSYS INJ IVP PRN (12:29)
[2022-02-14] MEDS ORDERED: ZOFRAN INJ 4 MG VIAL IVP PRN (12:29)
[2022-02-14] MEDS ORDERED: BENADRYL INJ 50 MG VIAL IVP PRN (12:29)
[2022-02-14] MEDS: DILAUDID INJ IVP PRN ×4 (12:30→12:45)
[2022-02-14] MEDS ORDERED: XYLOCAINE 2 % (PLAIN) ONE (12:50)
[2022-02-14] MEDS ORDERED: NAROPIN 0.75% EPI ONE (12:50)
[2022-02-14] MEDS ORDERED: DILAUDID INJ ONE (13:06)
[2022-02-14] MEDS: PROCARDIA XL 24-hr PO SCH ×2 (13:33→20:25)
[2022-02-14] MEDS: BUSPAR PO SCH ×2 (13:33→20:26)
[2022-02-14] MEDS: ROCALTROL PO SCH (14:42)
[2022-02-14] MEDS: K-DUR TAB 20 MEQ PO SCH (14:43)
[2022-02-14] MEDS: CYMBALTA PO SCH (14:43)
--- NOTE | 2022-02-14 16:08 | OR.IMMED ---
Immediate Post-Op Note - Immediate Post-Op Note Pre-Op Diagnosis: large wound Lt LE with hematoma . Post-Op Diagnosis: large open wound LLE 14 x 24 cm . Procedure: excisional debridement LLE wound 14 x 24 cm .. Description of Procedure: see report . Surgeon/Top Collar Baster: jose m Specimens Removed: skin and necrotic tissue .. Estimated Blood Loss: 20 to 30 cc Drains: NONE Complications: none Condition: Stable (to keep dressing intact .. IV ABT .. leg elevation . .. skin graft ater C&S is available ..)
[2022-02-14] MEDS: NORCO 7.5/325 MG TAB PO PRN (17:07)
[2022-02-14] MEDS: COLACE CAP 100 MG PO SCH (20:26)
[2022-02-14] MEDS: MIRALAX POWDER (1 DOSE 17 G) PO SCH (20:26)
[2022-02-14] MEDS ORDERED: CATAPRES TAB 0.1 MG PO ONE (21:49)
[2022-02-15 06:11] LABS: BASOPHILS # (AUTO) 0.1 X10^3/uL (0.0-0.1); BASOPHILS % (AUTO) 0.9 % (0.2-1.0); EOSINOPHILS # (AUTO) 0.3 x10^3/uL (0.0-0.2); HEMATOCRIT 28.3 % (36.0-47.0); LYMPHOCYTES % (AUTO) 15.5 % (21.0-51.0); MEAN CORPUSCULAR HEMOGLOBIN 31.2 pg (27.0-34.0); MEAN CORPUSCULAR HGB CONC 35.4 g/dL (33.0-35.0); MEAN PLATELET VOLUME 6.7 fL (7.4-11.0); MONOCYTES % (AUTO) 15.3 % (0.0-13.0); NEUTROPHILS % (AUTO) 64.3 % (42.0-75.0); RED BLOOD COUNT 3.21 X10^6/uL (3.5-5.4); RED CELL DISTRIBUTION WIDTH 14.3 % (11.6-16.5); WHITE BLOOD COUNT 6.3 X10^3/uL (3.6-10.0)
[2022-02-15 06:22] LABS: ALANINE AMINOTRANSFERASE 6 Units/L (12-78); ALBUMIN 2.1 g/dL (3.4-5.0); ALKALINE PHOSPHATASE 69 Units/L (46-116); ASPARTATE AMINO TRANSFERASE 8 Units/L (15-37); BLOOD UREA NITROGEN 4 mg/dL (7-18); CALCIUM 7.2 mg/dL (8.5-10.1); CARBON DIOXIDE 24.1 mmol/L (21-32); CHLORIDE 105 mmol/L (98-107); COR CA(FOR HYPOALB) 8.7 mg/dL (8.5-10.1); CREATININE 0.51 mg/dL (0.55-1.02); SODIUM 138 mmol/L (136-145); TOTAL PROTEIN 5.2 g/dL (6.4-8.2); eGFR NON BLACK RACES > 60 (>60)
[2022-02-15] MEDS: CYMBALTA PO SCH (09:53)
[2022-02-15] MEDS: BUSPAR PO SCH ×2 (09:53→20:24)
[2022-02-15] MEDS: VANCOMYCIN IV *PREMIX 1 G/200 ML BAG 1 G/200 ML PIGGYBACK IV SCH ×2 (09:54→20:22)
[2022-02-15] MEDS: PROCARDIA XL 24-hr PO SCH ×2 (09:54→20:22)
[2022-02-15] MEDS: COZAAR PO SCH (09:54)
[2022-02-15] MEDS: K-DUR TAB 20 MEQ PO SCH (09:54)
[2022-02-15] MEDS: ROCALTROL PO SCH (09:54)
[2022-02-15] MEDS: BETAPACE AF PO SCH ×2 (09:54→20:23)
[2022-02-15] MEDS: XANAX PO PRN ×2 (10:02→20:23)
--- NOTE | 2022-02-15 10:59 | DR.PROGNOT ---
Hospital Progress Notes - Progress Note for Day of: Progress Note Date: 02/15/22 - Chief Complaint Chief Complaint: more comfortable today .. s/p debridement Lt leg wound . lab work normal today .. - Past Medical Family Social History Past Med/Fam/Surg Hx: No changes since H&P Allergies: Allergies mupirocin [From Bactroban] Adverse Reaction (Verified 02/04/22 22:58) - Review Of Systems ROS: No change since H&P - Vital Signs Vital Signs: Temperature 98.4 F Pulse Rate [Radial] 87 Pulse Rate 70 Respiratory Rate 20 Blood Pressure [Right Arm] 163/73 Blood Pressure 147/83 O2 Sat by Pulse Oximetry 98 - Physical Exam Oriented: Normal Eyes: Normal Nose: Normal Throat: Normal Respiratory: Normal Cardiovascular: Normal : Normal GI:Auscultation: Normal GI:Palpation: Normal GI: Tenderness: Normal Skin: Other (dressing intact . distal pulses + no edema ) Speech Pattern: Clear, Appropriate - Laboratory and Diagnostics Result Diagrams: 02/15/22 05:28 02/15/22 05:28 Labs: 02/14/22 11:16 Leg - Left Wound Gram Stain - Final 02/14/22 11:16 Leg - Left Wound Culture - Preliminary 02/11/22 10:35 Urine,Clean Catch Urine Culture - Final 02/10/22 09:08 Blood Blood Culture - Final Staphylococcus Hominis 02/10/22 08:27 Blood Blood Culture - Preliminary 02/07/22 11:33 Leg - Left Wound Gram Stain - Final 02/07/22 11:33 Leg - Left Wound Culture - Final Staphylococcus Hominis 02/05/22 02:00 Urine,Catheterized Urine Culture - Final Laboratory WBC 6.3 X10^3/uL (3.6-10.0) 02/15/22 05:28 RBC 3.21 X10^6/uL (3.5-5.4) L 02/15/22 05:28 Hgb 10.0 g/dL (12.0-16.0) L 02/15/22 05:28 Hct 28.3 % (36.0-47.0) L 02/15/22 05:28 MCV 88.0 fL (80.0-100.0) 02/15/22 05:28 MCH 31.2 pg (27.0-34.0) 02/15/22 05:28 MCHC 35.4 g/dL (33.0-35.0) H 02/15/22 05:28 RDW 14.3 % (11.6-16.5) 02/15/22 05:28 Plt Count 385 X10^3/uL (150.0-450.0) 02/15/22 05:28 MPV 6.7 fL (7.4-11.0) L 02/15/22 05:28 Neut % (Auto) 64.3 % (42.0-75.0) 02/15/22 05:28 Lymph % (Auto) 15.5 % (21.0-51.0) L 02/15/22 05:28 [place] % (Auto) 15.3 % (0.0-13.0) H 02/15/22 05:28 Eos % (Auto) 4.0 % (0.9-2.9) H 02/15/22 05:28 Baso % (Auto) 0.9 % (0.2-1.0) 02/15/22 05:28 Neut # (Auto) 4.0 x10^3/uL (2.2-4.8) 02/15/22 05:28 Lymph # (Auto) 1.0 X10^3/uL (1.3-2.9) L 02/15/22 05:28 [place] # (Auto) 1.0 x10^3/uL (0.3-0.8) H 02/15/22 05:28 Eos # (Auto) 0.3 x10^3/uL (0.0-0.2) H 02/15/22 05:28 Baso # (Auto) 0.1 X10^3/uL (0.0-0.1) 02/15/22 05:28 Absolute Nucleated RBC 0.0 /100WBC 02/15/22 05:28 Sodium 138 mmol/L (136-145) 02/15/22 05:28 Corrected Sodium TNP 02/15/22 05:28 Potassium 3.8 mmol/L (3.5-5.1) 02/15/22 05:28 Chloride 105 mmol/L (98-107) 02/15/22 05:28 Carbon Dioxide 24.1 mmol/L (21-32) 02/15/22 05:28 BUN 4 mg/dL (7-18) L 02/15/22 05:28 Creatinine 0.51 mg/dL (0.55-1.02) L 02/15/22 05:28 Est GFR (MDRD) Af Amer > 60 (>60) 02/15/22 05:28 Est GFR (MDRD) Non-Af > 60 (>60) 02/15/22 05:28 Glucose 80 mg/dL (65-99) 02/15/22 05:28 Calcium 7.2 mg/dL (8.5-10.1) L 02/15/22 05:28 Corrected Calcium 8.7 mg/dL (8.5-10.1) 02/15/22 05:28 Magnesium 2.1 mg/dL (1.7-2.9) 02/14/22 05:18 Total Bilirubin 0.50 mg/dL (0.2-1.0) 02/15/22 05:28 AST 8 Units/L (15-37) L 02/15/22 05:28 ALT 6 Units/L (12-78) L 02/15/22 05:28 Alkaline Phosphatase 69 Units/L (46-116) 02/15/22 05:28 Creatine Kinase 53 Units/L (26-192) 02/10/22 09:08 Troponin I High Sens 8.4 ng/L (4.0-60.0) 02/10/22 09:08 Total Protein 5.2 g/dL (6.4-8.2) L 02/15/22 05:28 Albumin 2.1 g/dL (3.4-5.0) L 02/15/22 05:28 Globulin 3.1 g/dL (2.5-4.5) 02/15/22 05:28 Albumin/Globulin Ratio 0.7 Ratio (1.1-2.1) L 02/15/22 05:28 Specimen Type Clean catch urine 02/11/22 10:35 Urine Color Yellow (YELLOW) 02/11/22 10:35 Urine Appearance Clear (CLEAR) 02/11/22 10:35 Urine pH 6.0 (5.0 - 8.0) 02/11/22 10:35 Ur Specific [place] 1.015 (1.000-1.030) 02/11/22 10:35 Urine Protein Negative (NEGATIVE) 02/11/22 10:35 Urine Glucose (UA) Negative (NEGATIVE) 02/11/22 10:35 Urine Ketones 3+ (NEGATIVE) 02/11/22 10:35 Urine Blood Negative (NEGATIVE) 02/11/22 10:35 Urine Nitrite Negative (NEGATIVE) 02/11/22 10:35 Urine Bilirubin Negative (NEGATIVE) 02/11/22 10:35 Urine Urobilinogen Normal (NORMAL) 02/11/22 10:35 Ur Leukocyte Esterase Negative (NEGATIVE) 02/11/22 10:35 Urine RBC 3-5 /HPF (0-3) A 02/06/22 11:50 Urine WBC 0-2 /HPF (0-5) 02/06/22 11:50 Ur Squamous Epith Cells Negative /HPF (NEGATIVE) 02/06/22 11:50 Calcium Oxalate Crystal Moderate /HPF (NEGATIVE) 02/05/22 02:00 Urine Bacteria Trace /HPF (NEGATIVE) 02/06/22 11:50 Urine Yeast Rare /HPF (NEGATIVE) 02/06/22 11:50 Ur Culture Indicated? No/not indicated 02/06/22 11:50 Vancomycin Trough 20.5 ug/mL (15-20) H* 02/13/22 20:10 SARS CoV-2 RNA Rapid KIM Negative (NEGATIVE) 02/04/22 22:15 Tissue Pathology To follow 02/14/22 12:10 Blood Type O POSITIVE 02/09/22 09:27 Antibody Screen Negative 02/09/22 09:27 Crossmatch See Detail 02/09/22 09:27 - Assessment and Plan 2: large open wound Lt leg with undermined skin 24 x 14 cm and skin loss . s/p further debridement . A Fib , s/p cardiac ablation . arthritis . anemia 2nd blood loss .. no active bleeding now .. chronic edema Lt leg s/p node dissection years ago .. will plan for discharge in am with VN . IV ABT . skin graft after cultures are acceptable .
[2022-02-15] MEDS: NORCO 7.5/325 MG TAB PO PRN (17:20)
[2022-02-15] MEDS: COLACE CAP 100 MG PO SCH (20:23)
[2022-02-15] MEDS: MORPHINE SULFATE INJ 4 MG IVP PRN (20:24)
[2022-02-15] MEDS: MIRALAX POWDER (1 DOSE 17 G) PO SCH (20:31)
[2022-02-16] MEDS: HYDROCHLOROTHIAZIDE 25 MG TAB PO PRN (04:52)
[2022-02-16] MEDS: NORCO 7.5/325 MG TAB PO PRN (04:53)
[2022-02-16 06:03] LABS: BASOPHILS % (AUTO) 0.7 % (0.2-1.0); EOSINOPHILS # (AUTO) 0.2 x10^3/uL (0.0-0.2); HEMATOCRIT 29.2 % (36.0-47.0); HEMOGLOBIN 10.3 g/dL (12.0-16.0); LYMPHOCYTES # (AUTO) 0.9 X10^3/uL (1.3-2.9); LYMPHOCYTES % (AUTO) 16.2 % (21.0-51.0); MEAN CORPUSCULAR HGB CONC 35.2 g/dL (33.0-35.0); MEAN CORPUSCULAR VOLUME 87.9 fL (80.0-100.0); MEAN PLATELET VOLUME 6.5 fL (7.4-11.0); MONOCYTES # (AUTO) 0.9 x10^3/uL (0.3-0.8); MONOCYTES % (AUTO) 14.9 % (0.0-13.0); NEUTROPHILS # (AUTO) 3.8 x10^3/uL (2.2-4.8); NEUTROPHILS % (AUTO) 65.2 % (42.0-75.0); RED BLOOD COUNT 3.32 X10^6/uL (3.5-5.4); RED CELL DISTRIBUTION WIDTH 14.5 % (11.6-16.5); WHITE BLOOD COUNT 5.8 X10^3/uL (3.6-10.0)
[2022-02-16 07:08] LABS: ALANINE AMINOTRANSFERASE 8 Units/L (12-78); ALBUMIN 2.3 g/dL (3.4-5.0); ALKALINE PHOSPHATASE 73 Units/L (46-116); ASPARTATE AMINO TRANSFERASE 12 Units/L (15-37); BLOOD UREA NITROGEN 3 mg/dL (7-18); CALCIUM 7.5 mg/dL (8.5-10.1); CARBON DIOXIDE 22.3 mmol/L (21-32); CHLORIDE 104 mmol/L (98-107); COR CA(FOR HYPOALB) 8.9 mg/dL (8.5-10.1); SODIUM 137 mmol/L (136-145); TOTAL PROTEIN 5.6 g/dL (6.4-8.2); eGFR NON BLACK RACES > 60 (>60)
[2022-02-16] MEDS: BUSPAR PO SCH (09:00)
[2022-02-16] MEDS: PROCARDIA XL 24-hr PO SCH (09:01)
[2022-02-16] MEDS: COZAAR PO SCH (09:01)
[2022-02-16] MEDS: ROCALTROL PO SCH (09:01)
[2022-02-16] MEDS: K-DUR TAB 20 MEQ PO SCH (09:01)
[2022-02-16] MEDS: BETAPACE AF PO SCH (09:02)
[2022-02-16] MEDS: CYMBALTA PO SCH (09:02)
[2022-02-16] MEDS: XANAX PO PRN (09:14)
[2022-02-16 09:40] LABS: CREATININE 0.57 mg/dL (0.55-1.02); VANCOMYCIN,TROUGH 17.2 ug/mL (15-20)
[2022-02-16] MEDS ORDERED: MORPHINE SULFATE INJ 4 MG IM ONE (09:58)
[2022-02-16] MEDS: VANCOMYCIN IV *PREMIX 1 G/200 ML BAG 1 G/200 ML PIGGYBACK IV SCH (14:23)
[2022-02-16 14:25] VITALS: BP 94/55
[2022-02-16] MEDS: LEVAQUIN PREMIX IV 250 MG 250 MG/50 ML BAG IV ONE ×2 (14:25→14:40)
[2022-02-16] MEDS ORDERED: LEVAQUIN PREMIX IV 250 MG 250 MG/50 ML BAG IV ONE (14:49)
== END 2022-02-16 16:15 | disposition home health service (06) | DRG 605 ==
LOC: MED/SURG
PROVIDERS: ADMIT Surgery; ATTEND Surgery
DX: Y92.9 Unspecified place or not applicable; R60.0 Localized edema; Z79.01 Long term (current) use of anticoagulants; I48.91 Unspecified atrial fibrillation; R94.31 Abnormal electrocardiogram [ECG] [EKG]; W22.8XXA Striking against or struck by other objects, initial encounter; N39.0 Urinary tract infection, site not specified; D62 Acute posthemorrhagic anemia; I95.89 Other hypotension; I25.10 Atherosclerotic heart disease of native coronary artery without angina pectoris; S81.802A Unspecified open wound, left lower leg, initial encounter; R26.89 Other abnormalities of gait and mobility; Z20.822 Contact with and (suspected) exposure to COVID-19; R21 Rash and other nonspecific skin eruption

== ENCOUNTER 2022-02-21 08:34 | Observation (INO) ==
[2022-02-21] MEDS ORDERED: NS 100 ML IV 100 ML ONE (09:09)
[2022-02-21] MEDS ORDERED: LR 1,000 ML IV 1,000 ML IV ONE (09:09)
[2022-02-21 10:30] VITALS: BMI 26.6
[2022-02-21] MEDS ORDERED: FENTANYL VIAL INJ 100 mcg ONE ×2 (10:38→12:57)
[2022-02-21] MEDS ORDERED: DIPRIVAN VIAL 20 ML ONE (10:38)
[2022-02-21] MEDS ORDERED: BETADINE SOLN ONE (10:45)
[2022-02-21] MEDS ORDERED: NAROPIN 0.75% EPI ONE (10:51)
[2022-02-21] MEDS ORDERED: XYLOCAINE 2 % (PLAIN) ONE ×2 (11:08→13:12)
[2022-02-21] MEDS ORDERED: PRECEDEX INJ VIAL IVP ONE (11:08)
[2022-02-21] MEDS ORDERED: KETAMINE HCL ONE (11:08)
[2022-02-21] MEDS ORDERED: QUELICIN (OR ANECTINE) ONE (11:13)
[2022-02-21] MEDS ORDERED: ADRENALINE CHL INJ ONE (11:19)
[2022-02-21] MEDS ORDERED: EPHEDRINE SULFATE INJ ONE (11:20)
[2022-02-21] MEDS ORDERED: ZEMURON 100 MG VIAL ONE (11:21)
[2022-02-21] MEDS ORDERED: POLYMYXIN B SULFATE ONE (11:34)
[2022-02-21] MEDS ORDERED: MARCAINE/EPINEPHRINE ONE (11:36)
[2022-02-21] MEDS ORDERED: BRIDION ONE (11:37)
[2022-02-21] MEDS ORDERED: MARCAINE/EPINEPHRINE IJ ONE (11:48)
[2022-02-21] MEDS ORDERED: ZOFRAN INJ 4 MG VIAL ONE (12:29)
[2022-02-21] MEDS ORDERED: REGLAN INJ 10 MG VIAL IVP PRN (13:41)
[2022-02-21] MEDS ORDERED: PHENERGAN INJ 25 MG IM PRN (13:41)
[2022-02-21] MEDS ORDERED: DILAUDID INJ IVP PRN (13:41)
[2022-02-21] MEDS ORDERED: BENADRYL INJ 50 MG VIAL IVP PRN (13:41)
[2022-02-21] MEDS ORDERED: BARHEMSYS INJ IVP PRN (13:41)
[2022-02-21] MEDS ORDERED: ZOFRAN INJ 4 MG VIAL IVP PRN (13:41)
[2022-02-21] MEDS: DILAUDID INJ IVP PRN ×3 (15:26→23:33)
[2022-02-21] MEDS ORDERED: CATAPRES TAB 0.1 MG PO ONE (19:33)
[2022-02-21] MEDS: ANCEF VIAL 1 GRAM IVP SCH (21:25)
[2022-02-22 03:54] VITALS: BP 165/73
[2022-02-22] MEDS: ANCEF VIAL 1 GRAM IVP SCH (05:21)
[2022-02-22] MEDS: DILAUDID INJ IVP PRN ×2 (10:48→14:22)
[2022-02-22] MEDS ORDERED: STERILE WATER IRRIGATION IR ONE (13:02)
== END 2022-02-22 14:45 | disposition home health service (06) ==
LOC: SURG1 08:34 → MED/SURG 14:07 → INTOOBSV 14:17 → MED/SURG 14:17
PROVIDERS: ADMIT Surgery; ATTEND Surgery
DX: S81.802D Unspecified open wound, left lower leg, subsequent encounter; W22.8XXD Striking against or struck by other objects, subsequent encounter; Y92.9 Unspecified place or not applicable; Z20.822 Contact with and (suspected) exposure to COVID-19

== ENCOUNTER 2022-10-03 22:02 | Observation (INO) ==
[2022-10-03 22:21] VITALS: BMI 28.1
--- NOTE | 2022-10-03 23:18 | DR.EXTPAIN ---
HPI Time seen Time Seen by Provider: 10/03/22 23:17 PCP Primary Care Physician: Stephanie Complaint/Symptoms Chief Complaint:: Patient statet that she fell at home and hit her left knee and her leg began to swell after she fell. Patient stated she is worried she might have a blood clot in the left leg. COVID-19 Coronavirus risk:travel/contact w/high risk person: No Has patient experienced Coronavirus symptoms: No Source History Provided: Patient Mode of arrival Mode of Arrival: Wheelchair Timing Onset of Chief Complaint: 10/03/22 PMH PMH Past Medical History: Yes Past Medical History: Anxiety, Arthritis, Depression and Hypertension Past Surgical History: Yes Surgical History: Angioplasty/Stents Past Surgical History Comment: Cardic Ablation Family History History of Family Medical Conditions: Yes Family Medical History: Diabetes Mellitus, Cancer, [place] and Hypertension Social History Does any household member use tobacco: No Do you use any recreational Drugs:: No Lives With: Spouse Lives Where: Home Travel Risk Coronavirus risk:travel/contact w/high risk person: No Has patient experienced Coronavirus symptoms: No Infectious screening In the last 2 months have you had wt loss of >10#?: NO Have you had fever, night sweats or hemotysis?: No Have you traveled outside the country in the last 6 months?: No Isolation: Standard PE Vital Signs Vitals: Temperature 98.5 F Pulse Rate 73 Respiratory Rate 18 Blood Pressure [Right Arm] 165/73 Blood Pressure 190/93 O2 Sat by Pulse Oximetry 96 Opioid Opioid Risk Tool Age ([place] if 16-45): No History of Preadolescent Sexual Abuse: No Total: 0 Total Score Risk Category: Low Risk Copyright: Julius NICHOLSON predicting aberrant behaviors Discharge Plan Discharge Plan Patient Disposition: 09 ADMITTED INPATIENT Condition: Stable Discharge Comment: Admited Orders to Discharge Patient Discharge Orders: Transfer (Routine); Ordered 10/04/22 Ordered By: EMILIO LEÓN
[2022-10-04] MEDS ORDERED: MORPHINE SULFATE INJ 4 MG IM ONE (00:19)
[2022-10-04] MEDS ORDERED: ZOFRAN INJ 4 MG VIAL IM ONE (00:19)
--- NOTE | 2022-10-04 00:34 | CT ---
HISTORY: [Patient fell, left knee pain and swelling].EXAM: [NON]CONTRAST CT EXAM OF THE [left kneeCOMPARISON: [NONE].TECHNIQUE: AXIAL CT IMAGES OF THE [left knee] WERE PERFORMED [without] THE USE OF IV CONTRAST. REFORMATTED SAGITTAL AND CORONAL CT IMAGES WERE ALSO PERFORMED.FINDINGS:[There is no evidence of acute fracture dislocation. Mild degenerative osteoarthritic changes with mild narrowing of the medial joint compartment. Small joint effusion. There is a 6.8 x 8.9 x 1.9 cm collection anterior to the proximal tibia consistent with hematoma.].IMPRESSION:[Mild degenerative osteoarthritic changes left knee with mild narrowing of the medial joint compartment.Small joint effusion.6.8 x 8.9 x 1.9 cm hematoma within the soft tissues of the anterior lower leg.No acute bony abnormality].Electronically signed by: Nithin Bowser (Oct 04, 2022 00:32:45)
[2022-10-04] MEDS ORDERED: MORPHINE SULFATE INJ 4 MG IVP ONE (01:20)
[2022-10-04] MEDS ORDERED: ZOFRAN INJ 4 MG VIAL IVP ONE (01:20)
[2022-10-04] MEDS ORDERED: MORPHINE SULFATE INJ 4 MG ONE (01:22)
[2022-10-04] MEDS ORDERED: ZOFRAN INJ 4 MG VIAL ONE (01:22)
[2022-10-04] MEDS ORDERED: ZOFRAN INJ 4 MG VIAL IVP PRN (01:23)
[2022-10-04] MEDS ORDERED: APRESOLINE INJ 20 MG VIAL ONE (01:48)
[2022-10-04] MEDS ORDERED: NS 100 ML IV 0 ML ONE (01:49)
[2022-10-04] MEDS ORDERED: ANCEF VIAL 1 GRAM ONE ×2 (01:49→01:53)
[2022-10-04] MEDS: ANCEF VIAL 1 GRAM IVP ONE ×2 (01:59→02:01)
[2022-10-04] MEDS: APRESOLINE INJ 20 MG VIAL IVP ONE ×2 (02:02→02:05)
[2022-10-04] MEDS ORDERED: APRESOLINE INJ 20 MG VIAL IVP ONE (02:03)
[2022-10-04] MEDS ORDERED: ANCEF VIAL 1 GRAM IVP SCH (06:00)
[2022-10-04 06:32] LABS: ALANINE AMINOTRANSFERASE 9 Units/L (12-78); ALBUMIN 3.2 g/dL (3.4-5.0); ALKALINE PHOSPHATASE 44 Units/L (46-116); ASPARTATE AMINO TRANSFERASE 9 Units/L (15-37); BLOOD UREA NITROGEN 24 mg/dL (7-18); CALCIUM 8.6 mg/dL (8.5-10.1); CARBON DIOXIDE 28.8 mmol/L (21-32); CHLORIDE 106 mmol/L (98-107); COR CA(FOR HYPOALB) 9.2 mg/dL (8.5-10.1); CREATININE 0.83 mg/dL (0.55-1.02); SODIUM 141 mmol/L (136-145); TOTAL PROTEIN 5.7 g/dL (6.4-8.2); eGFR NON BLACK RACES > 60 (>60)
[2022-10-04 06:43] LABS: BASOPHILS % (AUTO) 0.4 % (0.2-1.0); EOSINOPHILS # (AUTO) 0.1 x10^3/uL (0.0-0.2); EOSINOPHILS % (AUTO) 1.7 % (0.9-2.9); HEMATOCRIT 30.3 % (36.0-47.0); HEMOGLOBIN 10.3 g/dL (12.0-16.0); LYMPHOCYTES # (AUTO) 1.5 X10^3/uL (1.3-2.9); LYMPHOCYTES % (AUTO) 24.5 % (21.0-51.0); MEAN CORPUSCULAR HEMOGLOBIN 29.5 pg (27.0-34.0); MEAN CORPUSCULAR VOLUME 86.7 fL (80.0-100.0); MEAN PLATELET VOLUME 8.1 fL (7.4-11.0); MONOCYTES % (AUTO) 17.1 % (0.0-13.0); NEUTROPHILS # (AUTO) 3.4 x10^3/uL (2.2-4.8); NEUTROPHILS % (AUTO) 56.3 % (42.0-75.0); RED CELL DISTRIBUTION WIDTH 14.2 % (11.6-16.5)
[2022-10-04] MEDS: ANCEF VIAL 1 GRAM IVP SCH ×3 (07:51→21:11)
[2022-10-04] MEDS: ISOSORBIDE MONONITRATE ER 24-HR PO SCH (08:30)
[2022-10-04] MEDS: COZAAR PO SCH (08:31)
[2022-10-04] MEDS: APRESOLINE TAB 25 MG PO SCH ×2 (08:31→21:11)
[2022-10-04] MEDS: MORPHINE SULFATE INJ 4 MG IVP PRN ×3 (08:32→20:08)
[2022-10-04] MEDS ORDERED: METHYLPREDNISOLONE 4 MG PO SCH (09:00)
[2022-10-04] MEDS ORDERED: NIFEDIPINE 30 MG PO SCH (21:00)
[2022-10-04] MEDS: LYRICA CAP 150 mg PO SCH (21:11)
[2022-10-04] MEDS: PROCARDIA XL PO SCH (21:11)
[2022-10-05] MEDS: MORPHINE SULFATE INJ 4 MG IVP PRN ×3 (01:27→17:56)
[2022-10-05] MEDS: ANCEF VIAL 1 GRAM IVP SCH ×3 (05:25→21:30)
[2022-10-05 05:35] LABS: BASOPHILS % (AUTO) 0.4 % (0.2-1.0); EOSINOPHILS # (AUTO) 0.1 x10^3/uL (0.0-0.2); EOSINOPHILS % (AUTO) 1.5 % (0.9-2.9); HEMATOCRIT 31.6 % (36.0-47.0); HEMOGLOBIN 10.6 g/dL (12.0-16.0); LYMPHOCYTES # (AUTO) 1.7 X10^3/uL (1.3-2.9); LYMPHOCYTES % (AUTO) 29.3 % (21.0-51.0); MEAN CORPUSCULAR HGB CONC 33.5 g/dL (33.0-35.0); MEAN CORPUSCULAR VOLUME 86.6 fL (80.0-100.0); MONOCYTES # (AUTO) 0.9 x10^3/uL (0.3-0.8); MONOCYTES % (AUTO) 15.3 % (0.0-13.0); NEUTROPHILS # (AUTO) 3.1 x10^3/uL (2.2-4.8); NEUTROPHILS % (AUTO) 53.5 % (42.0-75.0); RED BLOOD COUNT 3.65 X10^6/uL (3.5-5.4); RED CELL DISTRIBUTION WIDTH 14.1 % (11.6-16.5); WHITE BLOOD COUNT 5.8 X10^3/uL (3.6-10.0)
[2022-10-05 05:49] LABS: ALANINE AMINOTRANSFERASE < 6 Units/L (12-78); ALBUMIN 3.4 g/dL (3.4-5.0); ALKALINE PHOSPHATASE 47 Units/L (46-116); ASPARTATE AMINO TRANSFERASE 8 Units/L (15-37); BLOOD UREA NITROGEN 24 mg/dL (7-18); CALCIUM 8.3 mg/dL (8.5-10.1); CARBON DIOXIDE 30.5 mmol/L (21-32); CHLORIDE 104 mmol/L (98-107); CREATININE 1.09 mg/dL (0.55-1.02); SODIUM 139 mmol/L (136-145); TOTAL PROTEIN 6.1 g/dL (6.4-8.2); eGFR NON BLACK RACES 52 (>60)
[2022-10-05] MEDS: APRESOLINE TAB 25 MG PO SCH ×2 (08:16→20:40)
[2022-10-05] MEDS: COZAAR PO SCH (08:17)
[2022-10-05] MEDS: ISOSORBIDE MONONITRATE ER 24-HR PO SCH (08:17)
--- NOTE | 2022-10-05 11:04 | DR.PROGNOT ---
HOSPITAL PROGRESS NOTE Progress Note for Day of: Progress Note Date: 10/05/22 Chief Complaint Chief Complaint: c/o more pain around the LT knee . more swelling . able to ambulate with a walker Past Medical Family Social History Past Med/Fam/Surg Hx: No changes since H&P Allergies: Allergies mupirocin [From Bactroban] Allergy (Unknown, Verified 10/04/22 01:17) Reason: Drug allergy Vital Signs Vital Signs: Temperature 97.9 F Pulse Rate [Left] 66 Pulse Rate 73 Respiratory Rate 18 Blood Pressure [Right Arm] 122/65 Blood Pressure 190/93 O2 Sat by Pulse Oximetry 92 Physical Exam Respiratory: Normal Cardiovascular: Normal GI:Auscultation: Normal GI: Tenderness: Normal Skin: Other (moderate swelling around Lt knee with echymosis . small skin abrasion upper leg and Lt forearm .. all pulses + ,skin graft intact . ) Speech Pattern: Clear and Appropriate Laboratory and Diagnostics Result Diagrams: 10/05/22 04:48 10/05/22 04:48 Labs: Laboratory WBC 5.8 X10^3/uL (3.6-10.0) 10/05/22 04:48 RBC 3.65 X10^6/uL (3.5-5.4) 10/05/22 04:48 Hgb 10.6 g/dL (12.0-16.0) L 10/05/22 04:48 Hct 31.6 % (36.0-47.0) L 10/05/22 04:48 MCV 86.6 fL (80.0-100.0) 10/05/22 04:48 MCH 29.0 pg (27.0-34.0) 10/05/22 04:48 MCHC 33.5 g/dL (33.0-35.0) 10/05/22 04:48 RDW 14.1 % (11.6-16.5) 10/05/22 04:48 Plt Count 215 X10^3/uL (150.0-450.0) 10/05/22 04:48 MPV 8.0 fL (7.4-11.0) 10/05/22 04:48 Neut % (Auto) 53.5 % (42.0-75.0) 10/05/22 04:48 Lymph % (Auto) 29.3 % (21.0-51.0) 10/05/22 04:48 [place] % (Auto) 15.3 % (0.0-13.0) H 10/05/22 04:48 Eos % (Auto) 1.5 % (0.9-2.9) 10/05/22 04:48 Baso % (Auto) 0.4 % (0.2-1.0) 10/05/22 04:48 Neut # (Auto) 3.1 x10^3/uL (2.2-4.8) 10/05/22 04:48 Lymph # (Auto) 1.7 X10^3/uL (1.3-2.9) 10/05/22 04:48 [place] # (Auto) 0.9 x10^3/uL (0.3-0.8) H 10/05/22 04:48 Eos # (Auto) 0.1 x10^3/uL (0.0-0.2) 10/05/22 04:48 Baso # (Auto) 0.0 X10^3/uL (0.0-0.1) 10/05/22 04:48 Absolute Nucleated RBC 0.1 /100WBC 10/05/22 04:48 Sodium 139 mmol/L (136-145) 10/05/22 04:48 Corrected Sodium TNP 10/05/22 04:48 Potassium 3.9 mmol/L (3.5-5.1) 10/05/22 04:48 Chloride 104 mmol/L (98-107) 10/05/22 04:48 Carbon Dioxide 30.5 mmol/L (21-32) 10/05/22 04:48 BUN 24 mg/dL (7-18) H 10/05/22 04:48 Creatinine 1.09 mg/dL (0.55-1.02) H 10/05/22 04:48 Est GFR (MDRD) Af Amer > 60 (>60) 10/05/22 04:48 Est GFR (MDRD) Non-Af 52 (>60) L 10/05/22 04:48 Glucose 94 mg/dL (65-99) 10/05/22 04:48 Calcium 8.3 mg/dL (8.5-10.1) L 10/05/22 04:48 Corrected Calcium TNP 10/05/22 04:48 Total Bilirubin 0.40 mg/dL (0.2-1.0) 10/05/22 04:48 AST 8 Units/L (15-37) L 10/05/22 04:48 ALT < 6 Units/L (12-78) L 10/05/22 04:48 Alkaline Phosphatase 47 Units/L (46-116) 10/05/22 04:48 Total Protein 6.1 g/dL (6.4-8.2) L 10/05/22 04:48 Albumin 3.4 g/dL (3.4-5.0) 10/05/22 04:48 Globulin 2.7 g/dL (2.5-4.5) 10/05/22 04:48 Albumin/Globulin Ratio 1.3 Ratio (1.1-2.1) 10/05/22 04:48 Assessment and Plan 1: traumatic hematoma Lt leg . on anticoagulant . for US to evaluate the size of the hematoma . on IV antibiotics . 2: arthritis
--- NOTE | 2022-10-05 15:08 | VAS ---
Ultrasound left lower extremity venous DopplerIndication: HematomaTECHNIQUEDynamic grayscale, color and spectral Doppler imaging through the left lower extremity veins compression techniques spectral analysisFINDINGSThe left common femoral vein, superficial femoral vein throughout its length and popliteal vein are patent and compressible with normal respiratory phasicity. Posterior tibial vein is patent. Mild subcutaneous edema seen in the calf.IMPRESSIONNo left lower extremity deep vein thrombosis.Electronically signed by: BRYANT BAR (Oct 05, 2022 15:07:01)
[2022-10-05] MEDS ORDERED: COLACE CAP 100 MG PO PRN (20:27)
[2022-10-05] MEDS: LYRICA CAP 150 mg PO SCH (20:40)
[2022-10-05] MEDS: PROCARDIA XL PO SCH (20:41)
[2022-10-06] MEDS: ANCEF VIAL 1 GRAM IVP SCH (05:35)
[2022-10-06] MEDS: APRESOLINE TAB 25 MG PO SCH (09:25)
[2022-10-06] MEDS: ISOSORBIDE MONONITRATE ER 24-HR PO SCH (09:26)
[2022-10-06] MEDS: COZAAR PO SCH (09:26)
[2022-10-06] MEDS: MORPHINE SULFATE INJ 4 MG IVP PRN (09:26)
[2022-10-06 09:51] VITALS: BP 145/67
== END 2022-10-06 11:35 | disposition home or self-care (01) ==
LOC: MED/SURG 22:02 → ER 22:02 → MED/SURG 10-04 02:09
PROVIDERS: ADMIT Surgery; ATTEND Surgery
DX: I25.10 Atherosclerotic heart disease of native coronary artery without angina pectoris; I10 Essential (primary) hypertension; Z79.01 Long term (current) use of anticoagulants; W18.39XA Other fall on same level, initial encounter; R79.89 Other specified abnormal findings of blood chemistry; M19.90 Unspecified osteoarthritis, unspecified site; M25.562 Pain in left knee; I48.91 Unspecified atrial fibrillation; S80.12XA Contusion of left lower leg, initial encounter